=== PATIENT | female | born 1950 | race Caucasian/White ===

== ENCOUNTER 2025-02-03 06:54 | Day surgery (SDC) | payer SELFPAY, OTHER ==
--- NOTE | 2025-02-02 13:03 | PAT.ANE_ITS ---
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 When Was Last Pacemaker Check QUESTION #4 FULL TEXT: You/Your Family Experience fever (hyperthermia) with Anesthesia Last Oral Intake Last Oral intake: Last Oral Intake NPO since Meds taken in AM with sips of water? 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 Has anyone observed you stop No 01/30/25 15:24 breathing during sleep? STOP Results Negative 01/30/25 15:24 QUESTION #5 FULL TEXT : Do you snore loudly (louder than talking or can be heard through closed doors)? 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 Specify any problems Hx of Preganancy in last 3 No 01/30/25 15:24 Months Nurse Filling Out Transfusion VLEHMAN 01/30/25 15:24 & Questions: Date: 01/30/25 01/30/25 15:24 Time: 15:34 01/30/25 15:24 Patient unable to answer at this time (ie. 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Instructions ?Recorded ?Last Taken ?Type amlodipine 5 mg tablet 5 mg PO QDAY 01/23/25 Unknow n History aspirin 81 mg tablet 81 mg PO QDAY 01/23/2501/29 History atorvastatin 40 mg tablet 40 mg PO QDAY 01/23/25 Unkno wn History dapagliflozin propanediol 10 mg 10 mg PO QAM 01/23/25 01/30/25 History tablet (Farxiga) furosemide 20 mg tablet 20 mg PO QAM 01/23/25 Unknow n History gabapentin 400 mg capsule 400 mg PO 4X/DAY 01/23/25 Un known History glipizide 5 mg tablet, extended 5 mg PO QDAY 01/23/25 Unknown History release 24 hr hydralazine 25 mg tablet 25 mg PO TID 01/23/25 Unknow n History lisinopril 10 mg tablet 10 mg PO QAM 01/23/25 Unknow n History metformin 1,000 mg tablet 1,000 mg PO BID 01/23/25 Unk nown History oxybutynin chloride 10 mg 10 mg PO QDAY 01/23/25 Unkno wn History tablet,extended release 24 hr Allergy/AdvReac Type Severity Reaction Status Date / Time No Known Allergies Allergy Verified 01/30/25 15:18 Family History (Updated 01/23/25 @ 09:20 by Leslie Jackson) Mother Heart disease Father Heart disease Surgical History (Updated 01/30/25 @ 15:33 by Wilma Charles) History of cardiac catheterization S/P laparoscopic cholecystectomy History of Social History (Updated 01/23/25 @ 09:20 by Leslie Jackson) Smoking Status: Never smoker alcohol intake: never Audit: Pertinent Findings Pertinent Findings Stress test pertinent findings: Stress test performed 07/17/2023: Normal left ventricular size. The stress test was technically difficult. Septum appears dyskinetic. Calculated left ventricular ejection fraction 56% Recommendation Anesthesia Recommendation Anesthesia recommendation: OPTIMIZED for anesthesia
[2025-02-03] VITALS (10 sets, daily range): BP systolic 76–150; BP diastolic 22–70; PULSE 62–89; RESP 16–18; TEMP 36.1–36.6; O2SAT 10–100; BMI 22.1
--- OUTSIDE RECORDS SUMMARY | 2025-02-03 07:00 | XMS RPT_ITS | CCD ---
Author Organization [facility] Inform ion [facility] Care Team Providers Care Home Security Professional Name Role Phone Richard Luna Alpa Unavailable Ashu Castellanos Unavailable Unavailable Ashu Castellanos Unavailable Unavailable Klironomos, Dionysios Unavailable Unavailabl e Klironomos, Dionysios Unavailable Unavailabl e Klironomos, Dionysios Unavailable Unavailabl e Klironomos, Dionysios Unavailable Unavailabl e Klironomos, Dionysios Unavailable Unavailabl e Klironomos, Dionysios Unavailable Unavailabl e BABIUCH, LISETTE Unavailable Unavailable THELMA ETIENNE Unavailable Unavailable JODY, RICHARD B Attending Unavailable JODY, RICHARD B Primary Care Unavailable JODY, RICHARD B Admitting Unavailable JODY, RICHARD B Attending Unavailable JODY, RICHARD B Primary Care Unavailable JODY, RICHARD B Admitting Unavailable JODY, RICHARD B Attending Unavailable JODY, RICHARD B Primary Care Unavailable JODY, RICHARD B Admitting Unavailable JODY, RICHARD B Admitting Unavailable JODY, RICHARD B Attending Unavailable JODY, RICHARD B Primary Care Unavailable JODY, RICHARD B Attending Unavailable JODY, RICHARD B Primary Care Unavailable JODY, RICHARD B Attending Unavailable JODY, RICHARD B Primary Care Unavailable JODY, RICHARD B Attending Unavailable JODY, RICHARD B Primary Care Unavailable JODY, RICHARD B Admitting Unavailable JODY, RICHARD B Attending Unavailable JODY, RICHARD B Primary Care Unavailable Joshua JOYCE, Devan Bagley Primary Care Provid er DEVAN LEWIS Primary Care Unavaila ble DAY, MARLENJASVIR BAY Referring Unavailable DAY, MARLENJASVIR BAY Attending Unavailable DAY, MARLENJASVIR BAY Attending Unavailable DEVAN LEWIS Primary Care Unavaila ble DAY, MARLENJASVIR ABDULLAHIE Referring Unavailable JOSHUA DEVAN BAGLEY Primary Care Unavaila ble DAY, MARLENJASVIR BAY Attending Unavailable DAY, MARLENJASVIR ABDULLAHIE Referring Unavailable DEVAN LEWIS Primary Care Unavaila ble DAY, MARLENJSAVIR BAY Attending Unavailable DAY, MARLENJASVIR ABDULLAHIE Referring Unavailable LEWISDEVAN Primary Care Unavaila ble DAY, MARLEN BAY Attending Unavailable DAY, MARLENJASVIR BAY Referring Unavailable [facility] Consulting DIONE Riley Admitting Unavailable DEVAN MIJARES Referring Unavailable ARLENE ALFORD Attending Unavailable RICHARD LUNA Primary Care Unavaila ble Josef DONG, Dr. Tejada Attending Provider Mallory Bahena Attending Unavailable Devan Lewis Referring Unavailable Devan Lewis Primary Care Unavailable Mallory Bahena Attending Unavailable Medications Current Medications Medication Drug Class(es) Dates Sig (Normalized) Sig (Original) amLODIPine 5 mg oral tablet (2 sources) Dihydropyridine Calcium Channel Joseph Start: 01-23-2025 take 1 tablet by mouth once daily Amlodipine 5 mg tablet Active 5 mg PO daily January 23, 2025 12:00am take 1 tablet by mouth once mei y amLODIPine (NORVASC) 10 MG tablet Take 1 (one) tablet (10 mg total) by mouth daily . 0 Active aspirin 81 mg oral tablet (2 sources) Platelet Aggregation Inhibitor, Nonsteroidal Anti-inflammatory Drug Start: 01-23-2025 take 1 tablet by mouth once daily Aspirin 81 mg tablet Active 81 mg PO daily January 23, 2025 12:00am take 0.5 tablet by m outh once daily in the morning aspirin 325 MG tablet Take 0.5 (one-half ) tablet (162.5 mg total) by mouth every morning . 0 Active atorvastatin 40 mg oral tablet (2 sources) HMG-CoA Reductase Inhibitor Start: 01-23-2025 take 1 tablet by mouth once daily Atorvastatin 40 mg tablet Active 40 mg PO daily January 23, 2025 12:00am take 1 tablet by mouth once mei y atorvastatin (LIPITOR) 20 MG tablet Take 1 (one) tablet (20 mg total) by mouth nightly . 0 Active CHOLECALCIFEROL, VITAMIN D3, ORAL (1 source) take 1 tablet by mouth once daily at lunch CHOLECALCIFEROL, VITAMIN D3, ORAL Take 1 tablet by mouth daily with lunch . 0 Active dapagliflozin 10 mg oral tablet (1 source) Sodium-Glucose Cotransporter 2 Inhibitor Start: 025 take 1 tablet by mouth once daily in the morning Dapagliflozin Propanediol (Farxiga) 10 mg tablet Active 10 mg PO EVERY MORNING January 23, 2025 12:00am furosemide 20 mg oral tablet (2 sources) Loop Diuretic Start: 025 take 1 tablet by mouth once daily in the morning Furosemide 20 mg tablet Active 20 mg PO EVERY MORNING January 23, 2025 12:00am Start: 06-17-2023 End: 07-17-2023 take 2 tablets by mouth once daily in the morning furosemide (LASIX) 20 MG tablet Take 2 (two) tablets (40 mg total) by mouth every morning . 60 tablet 0 06/17/2023 07/17/2023 Active gabapentin 400 mg oral capsule (9 sources) Anti-epileptic Agent Start: 01-23-2025 take 1 capsule by mouth four times daily Gabapentin 400 mg capsule Active 400 mg PO 4 TIMES DAILY January 23, 2025 12:00am Start: 08-01-2017 take 1 capsule by mo uth four times daily gabapentin (NEURONTIN) 400 MG capsule Take 1 (one) capsule (400 mg total) by mouth 4 (four) times a day . 3 08/01/2017 Active glipiZIDE er 5 mg 24 hr extended release oral tablet (9 sources) Sulfonylurea Start: 01-23-2025 take 1 tablet by mouth once daily Glipizide 5 mg tablet extended release 24hr Active 5 mg PO daily January 23, 2025 12:00am Start: 05-31-2017 take 1 tablet by tunde th once daily in the morning glipiZIDE (GLUCOTROL XL) 5 MG 24 hr tablet Take 1 (one) tablet (5 mg total) by mouth every morning . 3 05/31/2017 Active Start: 05-31-2017 take 1 tablet by tunde th once daily glipiZIDE (GLUCOTROL) 5 MG tablet Take 5 mg by mouth daily. 3 05/31/2017 Active hydrALAZINE hydrochloride 25 mg oral tablet (1 source) Arteriolar Vasodilator Start: 01-23-2025 take 1 tablet by mouth three times daily Hydralazine 25 mg tablet Active 25 mg PO THREE TIMES A DAY January 23, 2025 12:00am lisinopril 10 mg oral tablet (2 sources) Angiotensin Converting Enzyme Inhibitor Start: 01-23-2025 take 1 tablet by mouth once daily in the morning Lisinopril 10 mg tablet Active 10 mg PO EVERY MORNING January 23, 2025 12:00am Start: 06-05-2023 take 1 tablet by tunde th once daily in the morning lisinopriL (PRINIVIL,ZESTRIL) 10 MG tablet Take 1 (one) tablet (10 mg total) by mouth every morning . 0 06/05/2023 Active metFORMIN hydrochloride 1000 mg oral tablet (9 sources) Biguanide Start: 01-23-2025 take 1 tablet by mouth twice daily Metformin 1,000 mg tablet Active 1000 mg PO TWICE A DAY January 23, 2025 12:00am Start: 05-31-2017 take 1 tablet by tunde th twice daily metFORMIN (GLUCOPHAGE) 1000 MG tablet Take 1 (one) tablet (1,000 mg total) by mouth 2 (two) times a day . 3 05/31/2017 Active omeprazole 40 mg delayed release oral capsule (1 source) Proton Pump Inhibitor Start: 01-23-2025 take 1 capsule by mouth once daily Omeprazole 40 mg capsule,delayed release(DR/EC) Active 40 mg PO daily 30 3 January 23, 2025 12:00am 24 hr oxybutynin chloride 10 mg extended release oral tablet (2 sources) Cholinergic Muscarinic Antagonist Start: 01-23-2025 take 1 tablet by mouth once daily Oxybutynin Chloride 10 mg tablet extended release 24hr Active 10 mg PO daily January 23, 2025 12:00am Start: 06-05-2023 take 1 tablet by tunde th once daily oxyBUTYnin (DITROPAN-XL) 10 MG 24 hr tablet Take 1 (one) tablet (10 mg total) by mouth nightly . 0 06/05/2023 Active levothyroxine sodium 0.05 mg oral tablet (6 sources) l-Thyroxine take 1 tablet by mouth once daily levothyroxine (SYNTHROID, LEVOTHROID) 50 MCG tablet Take 1 (one) tablet (50 mcg total) by mouth once daily . 0 Active traMADol hydrochloride 50 mg oral tablet (1 source) Opioid Agonist Start: 01-23-2025 take 1 tablet by mouth every six hours as needed Tramadol 50 mg tablet Active 50 mg PO EVERY 6 HOURS as needed January 23, 2025 12:00am Completed/Discontinued Medications Medication Drug Class(es) Dates Sig (Normalized) Sig (Original) Pantoprazole 20 mg tablet,delayed release (DR/EC) (1 source) Start: 01-23-2025 End: 01-23-2025 take 1 tablet by mouth once daily Pantoprazole 20 mg tablet,delayed release (DR/EC) Discontinued 20 mg PO daily January 23, 2025 12:00am January 23, 2025 9:56am simvastatin 10 mg oral tablet (5 sources) HMG-CoA Reductase Inhibitor Start: 09-12-2017 End: 07-09-2023 take 1 tablet by mouth once daily simvastatin (ZOCOR) 10 MG tablet Take 1 (one) tablet (10 mg total) by mouth nightly . 3 09/12/2017 07/09/2023 Discontinued (Alternate therapy) Problems Active Problems Problem Classification Problem Date Documented Da te Episodic/Chronic Abdominal pain (1 source) Abdominal pain; Translations: [Unspecified abdominal pain] 01-23-2025 Episodic Congestive heart failure; nonhypertensive (8 sources) Chronic heart failure co-occurrent with normal ejection fraction; Translations: [Chronic diastolic (congestive) heart failure] Onset: 06-14-2023 07-09-2023 Chronic Deficiency and other anemia (1 source) Anemia; Translations: [Anemia, unspecified] 01-23-2025 Episodic Diabetes mellitus without complication (1 source) Diabetes mellitus; Translations: [Type 2 diabetes mellitus without complications] 01-23-2025 Chronic Essential hypertension (1 source) Hypertensive disorder; Translations: [Essential (primary) hypertension] 01-23-2025 Chronic Gastrointestinal hemorrhage (1 source) Finding of appearance of stool; Translations: [Melena] 01-23-2025 Episodic Malaise and fatigue (1 source) Fatigue; Translations: [Other fatigue] 01-23-2025 Episodic Nausea and vomiting (1 source) Nausea; Translations: [Nausea] 01-23-2025 Episodic Nonspecific chest pain (5 sources) Chest pain; Translations: [Chest pain, unspecified] Onset: 07-09-2023 07-09-2023 Episodic Other gastrointestinal disorders (1 source) Dysphagia; Translations: [Dysphagia, unspecified] 01-23-2025 Episodic Other gastrointestinal disorders (1 source) Constipation; Translations: [Constipation, unspecified] 01-23-2025 Episodic Other lower respiratory disease (2 sources) Shortness of breath; Translations: [Shortness of breath] Onset: 06-14-2023 Episodic Other lower respiratory disease (1 source) Dyspnea; Translations: [Shortness of breath] 01-23-2025 Episodic Other nutritional; endocrine; and metabolic disorders (1 source) Weight decreased; Translations: [Abnormal weight loss] 01-23-2025 Episodic Other screening for suspected conditions (not mental disorders or infectious disease) (1 source) Patient encounter status; Translations: [Encounter for screening for lipoid disorders] 07-09-2023 Episodic Residual codes; unclassified (1 source) Sleep apnea; Translations: [Sleep apnea, unspecified] 01-23-2025 Chronic Past or Other Problems Problem Classification Problem Date Documented Da te Episodic/Chronic Other fractures (8 sources) Closed multiple fractures of thoracic spine; Translations: [Unspecified fracture of unspecified thoracic vertebra, initial encounter for closed fracture] Onset: 08-07-2017 08-07-2017 Episodic Unclassified (1 source) Closed compression fracture of thoracic vertebra with routine healing, subsequent encounter Results Test Name Value Interpretation Reference Range Facility MR/PATCharo 02-02-2025 MR[facility] Department [address] [place] [address] PAT - Anesthesia 02/02/25 1303 MR#: [id number] Acct: [id number] Name: MARVIN SIMONS Rep #: [id number] : 1950 74 From: Andrez Ngo MD PCP: Devan Lewis PA-C Status:PRE [facility] [place] Race: C Location: EN Pre-Assessment Diagnosis/Proposed Procedure Planned Operative Procedure(s): EGD, COLONOSCOPY Anesthesia History Anesthesia History - ios software engineer: Anesthesia History - ios software engineer Hx Hospitalization No 01/30/25 15:24 Any Problems With Anesthesia No 01/30/25 15:24 Cholinesterase deficiency No 01/30/25 15:24 You/Your Family Experience No 01/30/25 15:24 fever (hyperthermia) with Relationship Recent Exposure to Contagious Disease Does patient have nerve No 01/30/25 15:24 stimulator Patient instructed to have device shut off --Does patient have Pacemaker or ICD? When Was Last Pacemaker Check QUESTION #4 FULL TEXT: You/Your Family Experience fever (hyperthermia) with Anesthesia Last Oral Intake Last Oral intake: Last Oral Intake NPO since Meds taken in AM with sips of water? Meds patient instructed to take am of surgery PONV PONV - ios software engineer: PONV - ios software engineer Female Yes 01/30/25 15:24 HX of Motion Sickness No 01/30/25 15:24 HX of N/V After Surgery No 01/30/25 15:24 Non-Smoker Yes 01/30/25 15:24 Duration of Surgery greater No 01/30/25 15:24 than 60 minutes Number of Risk Factors 2 01/30/25 15:24 PONV Score Moderate Risk 01/30/25 15:24 Height Weight Height Weight: Anesthesia: Height Weight Height 5 ft 2 in 01/23/25 09:20 Respiratory Assessment Respiratory Assessment - ios software engineer: Respiratory Tract Infection Hx - ios software engineer Hx Respiratory Tract Infection No 01/30/25 15:24 STOP Sleep Apnea STOP Sleep Apnea - ios software engineer: STOP Sleep Apnea - ios software engineer Hx Hypertension Yes 01/30/25 15:24 Hx Sleep Apnea No 01/30/25 15:24 CPAP BIPAP Do you snore loudly (louder No 01/30/25 15:24 than talking or can be heard Do you often feel tired/ No 01/30/25 15:24 fatigued/ sleepy during daytime? Has anyone observed you stop No 01/30/25 15:24 breathing during sleep? STOP Results Negative 01/30/25 15:24 QUESTION #5 FULL TEXT : Do you snore loudly (louder than talking or can be heard through closed doors)? 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 Specify any problems Hx of Preganancy in last 3 No 01/30/25 15:24 Months Nurse Filling Out Transfusion [facility] 01/30/25 15:24 Questions: Date: 01/30/25 01/30/25 15:24 Time: 15:34 01/30/25 15:24 Patient unable to answer at this time (ie. confused, unrespo /Reproduction History /Reproductive History - ios software engineer: /Reproductive Hx- ios software engineer Hx Now No 01/30/25 15:24 Gestational Age (in weeks): EDC: Hx Hx Para Hx Section SAB No 01/30/25 15:24 [facility] Medical History (Updated 01/30/25 @ 15:33 by Wilma Charles) Wears dentures Wears glasses Walker as ambulation aid Uses wheelchair Bladder disease High cholesterol Non-smoker Shortness of breath on exertion Leg cramps History of stress test Anemia Black tarry stools Constipation Nausea Abdominal pain Sleep apnea SOB (shortness of breath) HTN (hypertension) Diabetes Weight loss Fatigue Difficulty swallowing Home Medications ???Medication ???Instructions ???Recorded ???Last Taken ???Type amlodipine 5 mg tablet 5 mg PO QDAY 01/23/25 Unknown Hist ory aspirin 81 mg tablet 81 mg PO QDAY 01/23/25 01/29/25 Hi story atorvastatin 40 mg tablet 40 mg PO QDAY 01/23/25 Unknown His tory dapagliflozin propanediol 10 mg 10 mg PO QAM 01/23/25 01/30/25 His tory tablet (Farxiga) furosemide 20 mg tablet 20 mg PO QAM 01/23/25 Unknown Hist ory gabapentin 400 mg capsule 400 mg PO 4X/DAY 01/23/25 Unknown History glipizide 5 mg tablet, extended 5 mg (more content not included)... Normal [facility] Surgery Visit Reporton 01-23 Surgery Visit Report [facility] [address] [place] [address] OFFICE VISIT Date of Service: 01/23/25 MR#: [id number] Acct: [id number] Name: MARVIN SIMONS Rep #: [id number] : 1950 Provider: Dr. Mallory paredes MD Age/Sex: 74/F Location: [facility] Status: Signed Intake Vital Signs 01/23/25 09:20 Height 5 ft 2 in Weight: 124 lb BMI 22.6 BP 134/66 H Blood Pressure Location Rt brachial Position Sitting Respiration 16 Intake Visit Reasons: WEIGHT LOSS/BLOATING Chief Complaint: wt loss, abd pain, bloating, constipation [employer] Social [employer] Teacher Required: No Is patient in pain?: Yes (mid abdomen) Allergies No Known Allergies Allergy (Unverified 01/23/25 09:21) Medications ???Medication ???Instructions ???Recorded ???Confirmed ???Type amlodipine 5 mg tablet 5 mg PO QDAY 01/23/25 01/23/25 His tory aspirin 81 mg tablet 81 mg PO QDAY 01/23/25 01/23/25 Hi story atorvastatin 40 mg tablet 40 mg PO QDAY 01/23/25 01/23/25 Hi story dapagliflozin propanediol 10 mg 10 mg PO QAM 01/23/25 01/23/25 His tory tablet (Farxiga) furosemide 20 mg tablet 20 mg PO QAM 01/23/25 01/23/25 His tory gabapentin 400 mg capsule 400 mg PO 4X/DAY 01/23/25 01/23/25 History glipizide 5 mg tablet, extended 5 mg PO QDAY 01/23/25 01/23/25 His tory release 24 hr hydralazine 25 mg tablet 25 mg PO TID 01/23/25 01/23/25 His tory lisinopril 10 mg tablet 10 mg PO QAM 01/23/25 01/23/25 His tory metformin 1,000 mg tablet 1,000 mg PO BID 01/23/25 01/23/25 History omeprazole 40 mg capsule,delayed 40 mg PO QDAY #30 caps 01/23/25 Rx release oxybutynin chloride 10 mg 10 mg PO QDAY 01/23/25 01/23/25 Hi story tablet,extended release 24 hr tramadol 50 mg tablet 50 mg PO Q6 PRN 01/23/25 01/23/25 History Have you fallen in the past year?: Yes PFSH Medical History (Updated 01/26/25 @ 12:[address] Mallory Bahena MD) Anemia Black tarry stools Constipation Nausea Abdominal pain Sleep apnea SOB (shortness of breath) HTN (hypertension) Diabetes Weight loss Fatigue Difficulty swallowing Surgical History (Updated 01/23/25 @ 09:20 by Leslie Jackson) S/P laparoscopic cholecystectomy History of Family History (Updated 01/23/25 @ 09:20 by Leslie Jackson) Mother Heart disease Father Heart disease Social History (Updated 01/23/25 @ 09:20 by Leslie Jackson) Smoking Status: Never smoker alcohol intake: never HPI HPI HPI: 74-year-old female presents due to bloating and weight loss. Patient states she lost about 2025 pounds unintentionally in the last 4 months. Patient states she has felt bloated for several months. Patient has been occasionally taking MiraLAX usually has bowel moods but every 2 to 3 days. Patient denies any vomiting but has had nausea daily. Patient currently denies any abdominal pain. Patient is on 81 mg aspirin preventative. ROS General General: Yes weight change and fatigue; No appetite, colon cancer or breast cancer HEENT HEENT: Yes difficulty swallowing, eye injury and eye surgery; No swollen glands or hoarseness Endo Endocrine: Yes diabetes mellitus; No thyroid disease, thyroid cancer, Hair loss, heat intolerance or cold intolerance Skin Skin: No rash or changing moles Musc Musculoskeletal: Yes back problems; No arthritis, rheumatoid arthritis, gout or joint pain Cardio Cardiovascular: Yes high blood pressure; No murmur, pacemaker, heart disease, atrial fibrillation, heart attack, heart stent, palpitations, shortness of breath with exertion or chest pain Psych Psychiatric: No depression, anxiety or hearing voices Resp Respiratory: Yes shortness of breath, Yes sleep apnea, No cough, No COPD, No asthma, No emphysema and No wheezing Gastro Gastrointestinal: Yes abdominal pain, Yes nausea or vomiting, No diarrhea, Yes constipation, No blood in stool, No acid reflux, No hemorrhoids, No ulcers, No gallbladder problem and Yes black,tarry stools Joseph Hematologic: No blood thinners, No blood disorders, No bleeding, Yes anemia and No blood clots Neuro Neurologic: Yes numbness and Yes tingling Exam Const General: cooperative, comfortable and no acute distress HENMT Head: normocephalic and atraumatic Neck Neck: supple Resp Effort Inspection: normal respiratory effort Cardio Rate: regular rate GI Inspection: non-distended Palpation: soft and nontender Skin General: no rashes or lesions noted Neuro General: CN's II-XI intact bilaterally Extrem General: normal to inspection Psych Mental Status: mental status grossly normal Attitude: cooperative Assessment and Plan Assessment and Plan (1) Nausea: Status: Acute (2) Weight loss: Status: Acute (3) Bloating: Status: Acute Medi (more content not included)... 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 Normal pharmacologic stress SPECT myocardial perfusion imaging study. 2. No inducible ischemia identified. 3. No diagnostic ischemic ST segment changes with regadenoson stress. Borderline ST depression inferior lateral leads with hypertension in recovery. 4. IV caffeine administered due to elevated blood pressure in recovery, maximal blood pressure of (264/38). 5. Normal left ventricular size. The stress/rest left ventricular cavity ratio (Transient Ischemic Dilatation ratio) = 1.13 . SPECT images demonstrate homogeneous tracer distribution throughout the myocardium. 6. Technically difficult gating with post stress imaging. Septum appears dyskinetic. Calculated LVEF 56%. 7. Overall intermediate-risk study based on SCAI criteria (1-3% predicted annual cardiac mortality). History/Risk Factors Hypertension: Yes Dyslipidemia: Yes Coronary Artery Disease (CAD) No Congestive Heart Failure (CHF): Hx CHF Diabetes Mellitus: Type II COPD: No Tobacco Use: Never Family History: Coronary Artery Disease History/Risk Factors Patient off home medications prior to study. Asthma: NO Caffeine in Last 24 Hours: No Seizure Disorder: No Radiopharmaceutical: Tc-99m Tetrofosmin Administration Site: IV - right antecubital Administered By: Frankie Guzman RT(N), NCT Camera Used: Taodynei Radiopharmaceutical: Tc-99m Tetrofosmin Administration Site: IV - right antecubital Administered By: Frankie Guzman RT(N), NCT Camera Used: Taodynei Image Protocol Protocol: Stress/Rest 1 Day Rest Radiopharmaceutical Dose: 18.1 mCi Imaging Date AND Time: 07/17/2023 11:57 AM Patient Position: supine Stress Radiopharmaceutical Dose: 6.4 mCi Imaging Date AND Time: 07/17/2023 10:28 AM Patient Position: supine Injection to Imaging Time: 57 min Injection to Imaging Time: 79 min Total Radiation Dose: 5.5 mSv Injection Date AND Time: 07/17/2023 11:00 AM Injection Date AND Time: 07/17/2023 9:10 AM Procedure(s): Gated SPECT images acquired supine post Tetrofosmin injection at peak stress. SPECT images acquired supine post Tetrofosmin injection at rest. [facility] [employer] application was utilized for processing and interpretation. SPECT Results Perfusion Findings Normal left ventricular size. The stress/rest left ventricular cavity ratio (Transient Ischemic Dilatation ratio) = 1.13 . SPECT images demonstrate homogeneous tracer distribution throughout the myocardium. Summed Difference Score: 0 Summed Stress Score: 0 Summed Rest Score: 0 Functional Results -------- Name Value Normal -------- Stress -------- Stress LV Ejection Fraction 56 % 55-70 Stress LV End Systolic Volume 32.00 ml Nuclear Stress Cardiac Output 3.10 l/min Stress LV End Diastolic Volume 73.00 ml Transient Ischemic Dilatation 1.13 Nuclear Stress Myocardial Mass 95.00 g Functional Findings Technically difficult gating with post stress imaging. Septum appears dyskinetic. Calculated LVEF 56%. Report Signatures MPI SPECT Finalized by Keren Moura MD on 07/17/2023 01:36 PM Stress Finalized by Keren Moura MD on 07/17/2023 01:36 PM Stress ECG Details Protocol: LEXISCAN Rest HR: 85 bpm Peak HR: 94 bpm Rest Sys BP: 119 mmHg Peak Sys BP: 264 mmHg Max Pred HR: 150 bpm % Max Pred HR: 63 % Target HR: 128 bpm Max RPP: 24,816 bpm*mmHg Termination Reason: PER PROTOCOL Cardiac Symptoms: None Total Time: 5 min : 0 sec Rest Linton BP: 44 mmHg Peak [place] BP: 38 mmHg Total Dose: 0.4 mg Resting ECG Normal sinus rhythm - normal ECG. Stress ECG No diagnostic ischemic ST segment changes with regadenoson stress. Borderline ST depression inferior lateral leads with hypertension in recovery. Arrhythmias RARE PAC. Stress Summary IV caffeine administered due to elevated blood pressure in recovery, maximal blood pressure of (264/38). Normal stress electrocardiogram. Dictated by: KEREN MOURA on SunJul 17, 2023 3:33:54 PM EST Transcribed by: KEREN MOURA on SunJul 17, 2023 3:33:54 PM EST Finalized (more content not included)... Normal [facility] Comment on above: Order Comment: Injur y/Trauma or Illness?:Illness/Other How long have you had these symptoms (acute/chronic)?:Unknown Reason for exam?:CP, CHF Type of Exam?:Unknown Additional signs and symptoms?:CP, CHF ECHOCARDIOGRAM COMPLETEon ECHOCARDIOGRAM COMPLETE Patient Info Name: MARVIN SIMONS Age: 72 years : 1950 Gender: Female Ht: 155 cm Wt: 74 kg BSA: 1.82 m2 HR: 70 bpm BP: 131 / 76 mmHg Heart Rhythm: Sinus Rhythm Technical Quality: Good Exam Date: 06/15/2023 2:30 PM Patient Status: Inpatient Boxcar Weigher: Ag Madden RCDS Exam Type: ECHOCARDIOGRAM COMPLETE Study Info Indications - Dyspnea R06.00 - Dyspnea, unspecified Referring Physician: DEVAN MIJARES ; [id number] BMI: 30.99 kg/m2 Summary 1. Normal LV chamber size. There is mild concentric left ventricular hypertrophy. Systolic function is normal with no regional wall motion abnormalities. Estimated ejection fraction of 60 to 65%. 2. The left ventricular diastolic function is grade II diastolic dysfunction, consistent with elevated left atrial pressure. 3. Right ventricular chamber dimension is normal. Right ventricular systolic function is normal. 4. No hemodynamically significant valvular disease. 5. RV systolic pressure could not be accurately estimated. History/Risk Factors Congestive Heart Failure (CHF): Hx CHF Diabetes Mellitus: Type II Tobacco Use: Never Left Ventricle Normal LV chamber size. There is mild concentric left ventricular hypertrophy. Systolic function is normal with no regional wall motion abnormalities. Estimated ejection fraction of 60 to 65%. The left ventricular diastolic function is grade II diastolic dysfunction, consistent with elevated left atrial pressure. Right Ventricle Right ventricular chamber dimension is normal. Right ventricular systolic function is normal. Left Atria Left atrial chamber is normal with a left atrial volume index of 33 ml/m2 by BP MOD. Right Atria Right atrial chamber dimension is normal. Pericardium/Pleural There is no pericardial effusion. Inferior Vena Cava Normal inferior vena cava with <50% collapse upon inspiration consistent with elevated right atrial pressure. Aorta The aortic measurements are indexed to age and body surface area. The aortic root is dilated measuring 3.3 cm with an index of 1.8 cm/m2. Left Ventricular Outflow Tract -------- Name Value Normal -------- LVOT 2D -------- LVOT Diameter 2.1 cm LVOT Doppler -------- LVOT Peak Velocity 1.0 m/s LVOT Peak Gradient 4 mmHg LVOT Mean Gradient 2 mmHg LVOT VTI 23 cm LVOT VTI/AV VTI Ratio 0.7 LVOT Stroke Volume 80 ml LVOT Stroke Index 44.19 ml/m2 Pulmonic Valve -------- Name Value Normal -------- RVOT Doppler -------- RVOT Peak Velocity 88 cm/s RVOT Peak Gradient 2 mmHg RVOT Mean Gradient 1 mmHg RVOT VTI 18 cm Mitral Valve -------- Name Value Normal -------- MV Doppler -------- MV Peak Velocity 1.38 m/s MV Peak Gradient 7 mmHg MV Mean Gradient 3 mmHg MV VTI 48 cm MV Decel [place] 424 cm/s2 MV PHT 93 ms MV Area (PHT) 2.4 cm2 4.0-5.0 MV Area (Cont Eq VTI) 1.7 cm2 MV Area Index (Cont Eq VTI) 0.92 cm2/m2 MV DVI 2.10 MV Diastolic Function -------- MV E Peak Velocity 1.37 m/s MV A Peak Velocity 1.33 m/s MV E/A 1.0 MV Decel Time 322 ms MV Annular TDI -------- MV Septal e' Velocity 5.1 cm/s >=8.0 MV E/e' (Septal) 26.9 <=8.0 MV Lateral e' Velocity 2.6 cm/s >=10.0 MV E/e' (Lateral) 53.4 <=8.0 MV e' Average 3.82 cm/s MV E/e' (Average) 40.2 Tricuspid Valve -------- Name Value Normal -------- TV Annular TDI -------- RV s' Velocity 0.1 m/s 0.1-0.2 Aorta -------- Name Value Normal -------- Ascending Aorta -------- Ao Root Diameter (2D) 3.3 cm 2.7-3.3 Ao Root Diam Index (2D) 1.8 cm/m2 1.6-2.0 Aortic Valve -------- Name Value Normal -------- AV Doppler (more content not included)... Normal [facility] COVID-19/INFLUENZA A,B MOLEC [place] 06-14-2023 SARS-CoV-2 (COVID-19) Ab IA Ql SARS-COV-2 (VILMA): Not Detected INFLUENZA A (VILMA): Not Detected INFLUENZA B (VILMA): Not Detected Normal Not Detected [facility] Comment on above: Order Comment: This test was performed under the FDA's Emergency Use Authorization (EUA). Testing was performed using the Clari Katie SARS-CoV-2 RT-PCR AND Influenza A/B Nucleic Acid Test on the Katie Vilma System. This test has not been approved for use in asymptomatic patients and its performance in this patient population has not been evaluated. Negative results do not rule out the presence of SARS-CoV-2, influenza A, and/or influenza B. Fact sheets for the EUA can be found at the following links: For Healthcare Providers: https://www.fda.gov/media/601302/download For Patients: https://www.fda.gov/media/655019/download Performed By: #### L [id number] #### [facility] [place] [id number] Thang Comer M.D. [id number] XR CHEST PA/APon 06-14-2023 XR CHEST PA/AP EXAMINATION: XR CHEST PA/AP 06/14/2023 5:18 pm HISTORY: ORDERING SYSTEM PROVIDED HISTORY: cp, TECHNOLOGIST PROVIDED HISTORY: Illness/Other Reason for exam: chest pain Cancer History: . Surgery, RadiationHistory: . Encounter Type: Initial Additional signs and symptoms: . ORDERING SYSTEM PROVIDED DIAGNOSIS CODES: COMPARISON: Portable chest from 07/25/2017. FINDINGS: Trachea, mediastinum, diaphragm and bony elements are intact. Mild osteopenic changes are noted. Heart size is mildly prominent. There is moderate calcified plaquing of the aortic arch. The lungs are clear and well aerated. No infiltrate or nodule or effusion or pneumothorax is noted. IMPRESSION: 1. Mild cardiomegaly. 2. The lungs are clear and well aerated. Workstation ID: [id number] Dictated by: CEE GREY on SunJun 14, 2023 5:35:42 PM EST Transcribed by: CEE GREY on SunJun 14, 2023 5:35:42 PM EST Finalized by: CEE GREY on Kristi Jun 14, 2023 5:35:42 PM EST Normal [facility] Comment on above: Order Comment: Injur y/Trauma or Illness?:Illness/Other How long have you had these symptoms (acute/chronic)?:Acute Reason for exam?:chest pain History of cancer?:. Surgeries, chemotherapy, or radiation?:. Type of Exam?:Initial Additional signs and symptoms?:. CT Chest w/o Contraston 01-10 CT Chest w/o Contrast CLINICAL HISTORY: Intermittent chest pains for years. Increasing pain with intensity and frequency. COMPARISON: None available. TECHNIQUE: Multiple contiguous axial images of the chest were obtained without enhancement. Multiplanar reformatted images were acquired at the CT console. All CT scans at this facility use dose modulation, iterative reconstruction, and/or weight based dosing when appropriate to reduce radiation dose to as low as reasonably achievable. FINDINGS: No evidence of aortic aneurysm. Atherosclerotic calcifications in the aorta and coronary arteries and origin of great vessels. There is no mediastinal or hilar lymphadenopathy. No pericardial or pleural effusions. The heart is mildly enlarged. There is discoid atelectasis in the lingula. There are minimal ground glass infiltrates/atelectasis posteriorly in the base of the left lower lobe. There is minimal atelectasis superior segment right lower lobe. Atelectasis posterior base right lower lobe. Tracheobronchial tree appears patent. There is a 2???3 mm nodule posteriorly within the superior segment left lower lobe, axial image 33. There is a 3 mm calcified granuloma superior segment right lower lobe, axial image 31. The visualized portions of the upper abdomen are unremarkable. The esophagus is unremarkable. Bones are demineralized. Severe volume loss within the T4 vertebra. Moderate volume loss in the T3 vertebra. Mild depression superior endplate of T7. Dorsal kyphosis. IMPRESSION: PATCHY INFILTRATE/ATELECTASIS IN THE POSTERIOR BASE LEFT LOWER LOBE. ATELECTASIS IN THE LINGULA. EXTENSIVE ATHEROSCLEROTIC CALCIFICATIONS IN THE AORTA AND CORONARY ARTERIES AND AT THE ORIGINS OF THE GREAT VESSELS. MILD CARDIAC ENLARGEMENT. NO ADENOPATHY OR PLEURAL EFFUSION. VOLUME LOSS WITHIN SEVERAL OF THE UPPER THORACIC VERTEBRAE. Report reported and signed by Geovanna Simons on 02/06/2022 1014 Normal [facility] VASC LAB Carotid Artery Dupl ex Ultrasounon 07-17-2019 VAS [place] [address] [phone], Vascular Lab Report Carotid Artery Duplex Ultrasound Patient Name: MARVIN SIMONS Reading Physician: [id number] Chevy Vargas MD Study Date: 07/17/2019 Referring Physician: Devan Lewis MRN/PID: [id number] PCP: Accession/Order#: [id number] CC Report to: Date of : 1950 Technologist: Shyanne Mace RVT Gender: F Technologist 2: Admission Status: Outpatient Location Performed: [facility] Diagnosis/ICD: I65.23-Occlusion and stenosis of bilateral carotid arteries Procedure/CPT: 83858 Cerebrovacular Carotid Duplex scan complete-[id number] CONCLUSIONS: Right Carotid: Findings are consistent with less than 50% stenosis of the right proximal ICA. Laminar flow seen by color Doppler. Right external carotid artery appears patent with no evidence of stenosis. The right vertebral artery is patent with antegrade flow. No evidence of hemodynamically significant stenosis in the right subclavian. Left Carotid: Findings are consistent with less than 50% stenosis of the left proximal ICA. Laminar flow seen by color Doppler. Left external carotid artery appears patent with no evidence of stenosis. The left vertebral artery is patent with antegrade flow. No evidence of hemodynamically significant stenosis in the left subclavian. Imaging & Doppler Findings: Right Plaque Morph: The proximal right internal carotid artery demonstrates heterogenous plaque. The proximal right external carotid artery demonstrates calcified plaque. The proximal right common carotid artery demonstrates calcified plaque. The mid right common carotid artery demonstrates heterogenous plaque. The right carotid bulb demonstrates calcified and heterogenous plaque. Left Plaque Morph: The proximal left internal carotid artery demonstrates heterogenous plaque. The proximal left external carotid artery demonstrates heterogenous plaque. The proximal left common carotid artery demonstrates heterogenous plaque. The mid left common carotid artery demonstrates heterogenous plaque. The distal left common carotid artery demonstrates heterogenous plaque. The left carotid bulb demonstrates heterogenous plaque. Right Left PSV EDV Waveform PSV EDV Waveform 95 cm/s 20 cm/s CCA P 87 cm/s 19 cm/s 83 cm/s 22 cm/s CCA D 127 cm/s 27 cm/s 82 cm/s 26 cm/s ICA P 104 cm/s 26 cm/s 111 cm/s 27 cm/s ICA D 100 cm/s 32 cm/s 155 cm/s ECA 100 cm/s 76 cm/s 22 cm/s Vertebral 60 cm/s 21 cm/s 129 cm/s Triphasic Subclavian Proximal 171 cm/s Triphasic Right Left ICA/CCA Ratio 1.0 0.8 [id number] Chevy Vargas MD Final Normal [facility] Lipid Profileon 04-02-2018 Cholesterol in HDL mass conc 41 mg/dL Normal [facility] Comment on above: Performed By: #### 3 [id number] #### [employer] [address] [place] [address] Cholesterol in LDL mass conc 95 mg/dL Normal 0-130 [facility] Comment on above: Result Comment: <100 OPTIMAL 100-129 NEAR / ABOVE OPTIMAL 130-159 BORDERLINE HIGH 160-189 HIGH >190 VERY HIGH CALC LDL NOT VALID WHEN TRIGLYCERIDE IS >400 MG/DL Performed By: #### 3 [id number] #### [employer] [address] [place], [place] [id number] Cholesterol in VLDL mass conc 17 mg/dL Normal [facility] Comment on above: Performed By: #### 3 [id number] #### [employer] [facility] [place] [id number] Cholesterol mass conc 153 mg/dL Normal 120-200 [facility] Comment on above: Result Comment: TOTA L CHOLEESTEROL: <200 NORMAL 200 - 239 BORDERLINE HIGH >240 HIGH Performed By: #### 3 [id number] #### [employer] [address] [place] [address] Triglyceride mass conc 83 mg/dL Normal 0-150 [facility] Comment on above: Result Comment: <150 NORMAL 150-199 BORDERLINE HIGH 200-499 HIGH >500 VERY HIGH Performed By: #### 3 [id number] #### [employer] [address] [place] [address] [place] 04-02-2018 Anion gap molar conc 12 mmol/L Normal 10-20 [facility] Comment on above: Performed By: #### 2 [id number] #### [employer] [address] [place] [address] Chloride molar conc 108 mmol/L High 98-107 [facility] Comment on above: Performed By: #### 2 [id number] #### [employer] [address] [place], [place] [id number] CO2 molar conc 26.0 mmol/L Normal 21.0-32.0 [facility] Comment on above: Performed By: #### 2 [id number] #### [employer] [address] [place] [address] Potassium molar conc 5.0 mmol/L Normal 3.5-5.3 [facility] Comment on above: Performed By: #### 2 [id number] #### [employer] [address] [place], [place] [id number] Sodium molar conc 141 mmol/L Normal 136-145 [facility] Comment on above: Performed By: #### 2 [id number] #### [employer] [address] [place], [place] [id number] CT SPINE THORACIC W/O CONTRA Trip 10-30-2017 CT SPINE THORACIC W/O CONTRAST Final ReportAccession No: [id number] Performed: Oct 30 2017 8:50AMExamination: CT SPINE THORACIC W/O CONTRASTEXAM: CT SPINE THORACIC W/O CONTRASTCLINICAL STATEMENT: Thoracic spine compression fractures. The patientfell 3months ago. Follow up.COMPARISON: CT thoracic spine, 10/02/2017.TECHNIQUE: Noncontrast axial CT images were obtained through the thoracicspine. Reconstructed images were obtained in the sagittal and coronalplanes.Dose reduction techniques were achieved by using automated exposurecontroland/or adjustment of mA and/or kV according to patient size and/or use ofiterative reconstruction technique.FINDINGS: Multiple compression fractures in the upper thoracic spine.There narinder healing subacute compression fracture at T2 with approximately 30% lossofvertebral body height that is stable. There is a healing subacutecompressionfracture at T3 with 40% loss of vertebral body height. Mild superiorendplatecompression fracture at T4 with 10% loss of vertebral body height isstable.Mild concave superior endplate compression deformities at T5 and T6 withapproximately 10% loss of vertebral body height are stable. There isretropulsion of the posterior aspect of T3 into the spinal canal by 3 mmresulting in mild spinal canal stenosis. This is stable from the prior.Thereare mildly displaced fractures of the spinous processes of T1, T2, and L5rwqvptdd stable. Compression fractures in the upper thoracic spine result in aprominent thoracic spine kyphosis which is stable. No new thoracic spinefractures.There are healing nondisplaced fractures involving the first ribs whicharestable. No new thoracic spine fractures.IMPRESSION:1. Stable CT of the thoracic spine.2. There are multiple subacute to chronic compression fractures in theupperthoracic spine most severe at T2 and T3. There is retropulsion of theposterioraspect of T3 into the spinal canal resulting in mild spinal canalstenosis.This is unchanged.3. Subacute fractures of the spinous processes of T1, T2, and T3 arestable.4. No new fractures. Alignment is unchanged.Interpreting Physician: SAM IZAGUIRRE M.D.Trans: dcarr : cc: Normal [facility] CT SPINE THORACIC W/O CONTRA Trip 10-02-2017 CT SPINE THORACIC W/O CONTRAST Final ReportAccession No: [id number] Performed: Oct 02 2017 8:52AMExamination: CT SPINE THORACIC W/O CONTRASTEXAM: CT SPINE THORACIC W/O CONTRASTCLINICAL STATEMENT: Follow-up for thoracic fracture. No new complaints.COMPARISON: 08/21/2017.TECHNIQUE: CT examination of the thoracic spine without IV contrast.Coronaland sagittal reformations were performed.Dose reduction techniques were achieved by using automated exposurecontroland/or adjustment of mA and/or kV according to patient size and/or use ofiterative reconstruction technique.FINDINGS: Compression fractures involving the vertebral body of T2 and V1mcebbbby seen and are similar. The degree of loss of axial height is stable.Thereare no new vertebral body compression fractures seen. Fractures involvingthebase of the spinous processes of T1, T2, and T3 are also again visualizedandshow stable alignment.Mild irregularity to the superior endplates of T4, T5, and T6 are againsuggested. These are stable. There are also noted to be stable appearingfractures involving the first rib on the right, right T2 transverseprocess,transverse processes bilaterally at T3 and T4, as well as on the left atT5. Nonew posterior element fracturing is identified.The visualized lung [place] are clear. There is no evidence of pleuraleffusion.There are coronary artery calcifications as well as aortic calcificationseen.IMPRESSION:St able appearance is noted to the multiple fractures involving the upperdorsalspine as described. There are no new injuries confirmed.Interpreting Physician: SHERMAN HERNANDEZ D.O.Trans: mmyers : cc: Normal [facility] Discharge Summaryon 08-30-19 Discharge Summary [facility] [place], [place] [address]PIBJMARVIN [facility] [id number] 3ADMIT 07/25/2017DISCH 07/31/2017DISCHARGE SUMMARYADMISSION DIAGNOSES1. Acute cervical strain.2. Acute thoracolumbar strain.3. Chest wall contusion.4. Status post fall.DISCHARGE DIAGNOSES1. T1 through T3 transverse process fracture.2. Acute nondisplaced fracture of the right posterior rib.3. Constipation.4. Hypertension.5. Diabetes.6. Status post fall.CONSULTATIONSPatient was seen by Dr. Salcedo with Neurosurgery regarding her thoracicspine fractures. The patient was also seen by Dr. Mendoza with inpatientrehab.[facility] OSVALENTINA Simons is a 66-year-old female patient, who came to the hospital afterfalling down about 12 steps at her home. The patient came in with complaintsof some cervical strain, thoracolumbar pain, chest wall contusion, and a fall.On further evaluation, the patient was found to have T1 through T3 thoracicspine fractures. She was also found to have a right first rib fracture. Thepatient's hospital course was pretty uncomplicated. She did see Neurosurgerywho further evaluated her thoracic fractures, which were nonoperativelymanaged. We did do aggressive pulmonary toileting, pain control, for her ribfracture. Her diabetes and hypertension were both managed per homemedications. The patient was seen and evaluated by inpatient rehab, , who recommended home with family support. By 07/31/2017, the patientwas feeling well enough to be discharged to home to follow up with her doctoras an outpatient.DISCHARGE INSTRUCTIONSPatient was discharged to home to follow up with the Trauma Clinic in 1-2weeks. Follow up with Dr. Salcedo as scheduled and her PCP in 1-2 weeks.The patient was instructed no heavy lifting or strenuous activity untilcleared by Neurosurgery. Okay to shower. Diet as tolerated.DISPOSITIONHome with family.CONDITIONStable.VITAL SIGNSAt discharge, temperature 97.8, heart rate 60, respirations 16, 128/72 forblood pressure.DISCHARGE MEDICATIONSNeurontin every day, fish oil every day, cyclobenzaprine every day, Tylenol asneeded for pain, glipizide every day, levothyroxine every day, metformin everyday.NORBERT BERNAL 08/29/2017 15:18 [id number] 08/29/2017 15:42 JLM/MODLElectronically Signed By Rachell Madrid Cnp on 29 Aug 2017 20:35:30 GMT Normal [facility] CT SPINE THORACIC W/O CONTRA Trip 08-21-2017 CT SPINE THORACIC W/O CONTRAST Final ReportAccession No: [id number] Performed: Aug 21 2017 3:27PMExamination: CT SPINE THORACIC W/O CONTRASTEXAM: CT SPINE THORACIC W/O CONTRAST 08/21/2017.CLINICAL STATEMENT: The patient suffered a burst fracture of the Y4egyiugjbznxdi and compression fractures of the upper thoracic spine in the middleofFebruary 2017. Followup for fracture healing.COMPARISON: CT scan thoracic spine 07/25/2017 and MRI thoracic spine07/26/2017.TECHNIQUE: CT examination of the thoracic spine without IV contrast.Coronaland sagittal reformations were performed. ?Dose reduction techniques were achieved by using automated exposurecontroland/or adjustment of mA and/or kV according to patient size and/or use ofiterative reconstruction technique.FINDINGS: There is a nondisplaced fracture of the right T2 transverseprocess.There is a nondisplaced fracture involving the posteromedial aspect of theright first rib which appears mildly comminuted. There appears to be someosseous bridging surrounding this fracture. There are nondisplacedfracturesinvolving the T3 and T4 transverse processes. There is also a nondisplacedfracture of the lateral aspect of the left T5 transverse process.There is redemonstration of a fracture of the base of the T1 spinousprocess.This fracture again appears to have distraction of approximately 2 mm asseenon the prior CT scan. There is no significant callus formation or osseousfusion seen to involve this fracture. There is also a similar appearanceof afracture of the base of the T2 spinous process which is distractedapproximately 2 mm and no evidence of healing of this fracture is seen. Anondisplaced fracture of the base of the T3 spinous process extendinginto thelamina bilaterally is again seen.There is a similar appearance of mild compression fractures of the S9eiihzyehzpahv and the superior endplates of T4, T5, and T6.There is also a similar appearance of a moderate burst fracture of the K8sevdkjtbn body with loss of 50% of vertebral body height. Retropulsion ofT3 of5 mm is again seen and again appears to cause mild-moderate spinal canalstenosis. The margins of the fracture of T3 appear ill-defined.No new compression fracture or subluxation of the thoracic spine is seen.Thereis a similar appearance of focal increased kyphosis of the thoracic spinecentered at the T3 level measuring approximately 47 degrees as measuredfromthe superior endplate of T1 to the inferior endplate of T6.IMPRESSION:1. There is a stable appearance of a moderate burst fracture of the X5vejxhqprx body with loss of 50% of vertebral body height when compared totheprior CT scan of 07/25/2017. There is also a stable appearance of anondisplaced fracture of the base of the T3 spinous process which extendsthrough the lamina bilaterally. No convincing evidence of significanthealingof these fractures is seen at this time. Mild retropulsion of T3 againappearsto cause mild-moderate spinal canal stenosis.2. Stable appearance of a mild compression fracture of the T2 vertebralbodyand mild superior endplate compression fractures of T4, T5, and T6.3. Stable appearance of mildly distracted fractures involving the basesof theT1 and T2 spinous processes.4. Stable appearance of nondisplaced fractures involving the right T0nfgzbwnwnn process, the T3 and T4 transverse processes bilaterally, theleft C8nghhxikywc process, and the right first rib.Interpreting Physician: ARDEN BHARDWAJ M.D.Trans: pita : cc: Normal [facility] Glucose, POCon 07-31-2017 Glucose mass conc 166 mg/dL High 80-115 [facility] Comment on above: Performed By: #### C BCWOD, PT, PTT, ALC, MG, PHOS, CMET, LA ####Unless otherwise noted, all testing performed by [facility] [place], [place] [id number]: [id number] Director: Thang Comer M.D. Glucose mass conc 108 mg/dL Normal 80-115 [facility] Comment on above: Performed By: #### C BCWOD, PT, PTT, ALC, MG, PHOS, CMET, LA ####Unless otherwise noted, all testing performed by [place] [phone]: [id number] Director: Thang Comer M.D. Glucose, POCon 07-30-2017 Glucose mass conc 123 mg/dL High [address] [place] [address] Comment on above: Performed By: #### C BCWOD, PT, PTT, ALC, MG, PHOS, CMET, [place] ####Unless otherwise noted, all testing performed by [address] [phone]: [id number] Director: Thang Comer M.D. Glucose mass conc 90 mg/dL Normal 80-115 [facility] Comment on above: Performed By: #### C BCWOD, PT, PTT, ALC, MG, PHOS, CMET, [place] ####Unless otherwise noted, all testing performed by [address] [phone]: [id number] Director: Thang Comer M.D. Glucose mass conc 160 mg/dL High 80-115 [facility] Comment on above: Performed By: #### C BCWOD, PT, PTT, ALC, MG, PHOS, CMET, [place] ####Unless otherwise noted, all testing performed by [address] [phone]: [id number] Director: Thang Comer M.D. Glucose mass conc 122 mg/dL High [address] [place] [address] Comment on above: Performed By: #### C BCWOD, PT, PTT, ALC, MG, PHOS, CMET, [place] ####Unless otherwise noted, all testing performed by [address], [place] [phone]: [id number] Director: Thang Comer M.D. Glucose, POCon 07-29-2017 Glucose mass conc 135 mg/dL High [address] Comment on above: Performed By: #### C BCWOD, PT, PTT, ALC, MG, PHOS, CMET, [place] ####Unless otherwise noted, all testing performed by [address] [phone]: [id number] Director: Thang Comer M.D. Glucose mass conc 122 mg/dL High [address] [place] [address] Comment on above: Performed By: #### C BCWOD, PT, PTT, ALC, MG, PHOS, CMET, [place] ####Unless otherwise noted, all testing performed by [address] [phone]: [id number] Director: Thang Comer M.D. Glucose mass conc 171 mg/dL High [address] [place] [address] Comment on above: Performed By: #### C BCWOD, PT, PTT, ALC, MG, PHOS, CMET, [place] ####Unless otherwise noted, all testing performed by [address] [phone]: [id number] Director: Thang Comer M.D. Glucose mass conc 117 mg/dL High [address] [place] [address] Comment on above: Performed By: #### C BCWOD, PT, PTT, ALC, MG, PHOS, CMET, [place] ####Unless otherwise noted, all testing performed by [address] [phone]: [id number] Director: Thang Comer M.D. 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 Her main complaint is mystomach slightly sick and she feels slightly nauseated.OBJECTIVENo muscle weakness in both upper and lower extremities. She is neurologicallyintact.ASSESSMENT Compression fracture of T2 and T3 associated with other fracture of the spineas noted above. She has history of deep vein thrombosis before.At present, she has no neurosurgical procedure warranted. I would recommendthat the patient should be evaluated to see if she is a candidate for short-stay acute spine injury rehab facility versus home care with home PT and OTand home care. She should be followed by Dr. Salcedo in about a coupleweeks from now. Since there is no neurosurgical procedure warranted atpresent, neurosurgery will sign off this case.EDY BHATIA 07/29/2017 12:15 [id number] 07/29/2017 12:30 AR/MODLElectronically Signed By Luis Chong MD on 30 Jul 2017 16:53:32 GMT Normal [facility] Glucose, POCon 07-28-2017 Glucose mass conc 153 mg/dL High 80-115 [facility] Comment on above: Performed By: #### C BCWOD, PT, PTT, ALC, MG, PHOS, CMET, [place] ####Unless otherwise noted, all testing performed by [address], [place] [phone]: [id number] Director: Thang Comer M.D. Glucose mass conc 138 mg/dL [address] Comment on above: Performed By: #### C BCWOD, PT, PTT, ALC, MG, PHOS, CMET, [place] ####Unless otherwise noted, all testing performed by [address] [phone]: [id number] Director: Thang Comer M.D. Glucose mass conc 152 mg/dL [address] Comment on above: Performed By: #### C BCWOD, PT, PTT, ALC, MG, PHOS, CMET, [place] ####Unless otherwise noted, all testing performed by [address] [phone]: [id number] Director: Thang Comer M.D. Glucose mass conc 127 mg/dL [address] Comment on above: Performed By: #### C BCWOD, PT, PTT, ALC, MG, PHOS, CMET, [place] ####Unless otherwise noted, all testing performed by [address] [phone]: [id number] Director: Thang Comer M.D. Consultationon 07-27-[address] [address]EBMKMARVIN MARTIN [id number] 3DATE 07/26/2017CONSULTATIONCONSULTAN Alden SALCEDO MDNEUROLOGY CONSULTATIONREFERRING PHYSICIANTrauma physician.CHIEF COMPLAINTThoracic spine fractures.HISTORY OF PRESENT ILLNESSThis 66-year-old female slipped down some stairs. She did not have any lossof consciousness. She complains of severe pain in the upper back and upperchest. She also mentions pain in the left arm currently, and now difficultymoving the left arm due to pain. No numbness is identified. She is able tomove the legs strongly.PAST MEDICAL HISTORYType 2 diabetes and diabetic neuropathy.PAST SURGICAL HISTORYC-section x3 and cholecystectomy.ALLERGIESNone.M EDICATIONSMetformin, glipizide, gabapentin.SOCIAL HISTORYNo alcohol use.REVIEW OF SYSTEMSOtherwise negative.PHYSICAL EXAMINATIONGeneral Appearance: Pleasant, in no acute distress.Vital Signs: Afebrile. Vital Signs stable. Blood pressure is nkyevlffj512/69.Musculoskeletal /Neurologic examination: She is alert and oriented x3. Nocranial nerve deficits are identified. She is able to move all extremitieswell with good hand grasp strength except for the left arm, which she says ispainful. She has no numbness. She has no Shin sign. No clonus.LABORATORY DATASodium is 139. INR 1.02. Hemoglobin 10.1, platelet count 205.IMAGINGShowed that she had compression fractures involving T2 and T3 vertebral bodieswith mild retropulsion. She also has spinous process fractures of T1, T2 andT3, and the right pedicles involved on the right side, the right transverseprocess of T2, and posterior left lamina of T3. She also has an acutenondisplaced fracture of the right posterior 1st rib.ASSESSMENT AND PLANUnclear why she is having pain this morning with the left arm. We will orderI cervical and thoracic spine to complete the studies. She will be alsofitted for a cervical thoracic orthosis for the thoracic compressionfractures.EDY STANLEY 07/26/2017 12:08 [id number] 07/26/2017 12:20 DK/MODLElectronically Signed By Tarik Salcedo M.D. on 26 Jul 2017 17:32:47 T Normal [facility] Progress Note [facility], [place] [address]BWHVMARVIN [facility]ARTIN [facility] [id number] [id number] 3DATE 07/27/2017PROGRESS NOTENEUROSURGERY FOLLOWUP CONSULTATION.NEUROSURGERY CONSULTANTLuis Chong MD, FAANS.PROFILEA 66-year-old white female.CURRENT PROBLEMThoracic fracture.SUBJECTIVEThis 66-year-old white female has a known history of type 2 diabetesassociated with diabetic peripheral neuropathy. She stated that she is doingwell as long as she is laying down flat and not moving too much. She statedthat the brace to support her neck and thoracolumbar region needed to bereadjusted so she is back and laying flat with a Jay collar until thecervicothoracic brace is available.OBJECTIVEShe has no muscle weakness in both upper and lower extremities and isneurologically intact.I personally reviewed her imaging studies, confirmed and concur with of the compression fracture T2 and T3, worst at T3, and MRI of thethoracic spine shows that it also involves partially T4 and involves the rightpedicle of T3 and the transverse process of the T2, and the left lamina of T3.She has also a nondisplaced acute fracture of the 1st rib.The cervical MRI scan did not show any nerve root compression or cordcompression.She has decreased bone density on reviewing her scans.RECOMMENDATIONS AND PLANPatient can be mobilized, ambulated as long as she is in the cervicothoracicorthosis to immobilize the compression fracture T2 and T3.I would recommend that the patient have a bone density to make sure she doesnot have osteopenia and/or osteoporosis. If she does, she will need to beevaluated by strip mill operator to place her on medications for this problem.Dictated by SALONI Bhatia, EDY 07/27/2017 14:52 [id number] 07/27/2017 15:12 AR/MODLElectronically Signed By Tarik Salcedo M.D. on 28 Jul 2017 15:36:30 GMT Normal [facility] Glucose, POCon 07-27-2017 Glucose mass conc 164 mg/dL High 80-115 [facility] Comment on above: Performed By: #### C BCWOD, PT, PTT, ALC, MG, PHOS, CMET, [place] ####Unless otherwise noted, all testing performed by [address] [phone]: [id number] Director: Thang Comer M.D. Glucose mass conc 142 mg/dL High 80-115 [facility] Comment on above: Performed By: #### C BCWOD, PT, PTT, ALC, MG, PHOS, CMET, [place] ####Unless otherwise noted, all testing performed by [address] [phone]: [id number] Director: Thang Comer M.D. Glucose mass conc 231 mg/dL High 80-115 [facility] Comment on above: Performed By: #### C BCWOD, PT, PTT, ALC, MG, PHOS, CMET, [place] ####Unless otherwise noted, all testing performed by [address] [phone]: [id number] Director: Thang Comer M.D. Glucose mass conc 130 mg/dL High 80-115 [facility] Comment on above: Performed By: #### C BCWOD, PT, PTT, ALC, MG, PHOS, CMET, [place] ####Unless otherwise noted, all testing performed by [address] [phone]: [id number] Director: Thang Comer M.D. Basic Metabolic Panelon 07-12 Calcium 8.3 mg/dL Low 8.4-10.2 [facility] Comment on above: Performed By: #### C BCWOD, PT, PTT, ALC, MG, PHOS, CMET, [place] ####Unless otherwise noted, all testing performed by [address] [phone]: [id number] Director: Thang Comer M.D. Chloride 108 mmol/L Normal 98-108 [facility] Comment on above: Performed By: #### C BCWOD, PT, PTT, ALC, MG, PHOS, CMET, [place] ####Unless otherwise noted, all testing performed by [address] [phone]: [id number] Director: Thang Comer M.D. CO2 24 mmol/L Normal 21-32 [facility] Comment on above: Performed By: #### C BCWOD, PT, PTT, ALC, MG, PHOS, CMET, [place] ####Unless otherwise noted, all testing performed by [address] [phone]: [id number] Director: Thang Comer M.D. Creatinine 0.72 mg/dL Normal 0.60-1.20 [facility] Comment on above: Performed By: #### C BCWOD, PT, PTT, ALC, MG, PHOS, CMET, [place] ####Unless otherwise noted, all testing performed by [address] [phone]: [id number] Director: Thang Comer M.D. eGFR (black) mL/min/{1.73_m2} Normal [facility] Comment on above: Result Comment: Afri can [place] GFR Calc Performed By: #### C BCWOD, PT, PTT, ALC, MG, PHOS, CMET, [place] ####Unless otherwise noted, all testing performed by [address] [phone]: [id number] Director: Thang Comer M.D. eGFR (non-black) mL/min/{1.73_m2} Normal [facility] Comment on above: Result Comment: Non- GFR CalceGFR is an estimated Glomerular Filtration Rate based on the valueof the patient's serum creatinine. In outpatients, eGFR should be usedas a helpful tool in screening for CKD. In inpatients or patients withacute renal failure, eGFR represents the GFR at the moment of the drawand should be used with caution. Performed By: #### C BCWOD, PT, PTT, ALC, MG, PHOS, CMET, [place] ####Unless otherwise noted, all testing performed by [address] [phone]: [id number] Director: Thang Comer M.D. Glucose mass conc 126 mg/dL High 70-99 [facility] Comment on above: Result Comment: This test result might be falsely depressed or falsely elevated onsamples drawn from patients taking Sulfasalazine and Sulfapyridine.Venipuncture should occur prior to taking either of these drugs. Performed By: #### C BCWOD, PT, PTT, ALC, MG, PHOS, CMET, [place] ####Unless otherwise noted, all testing performed by [address] [phone]: [id number] Director: Thang Comer M.D. Potassium molar conc 4.4 mmol/L Normal 3.5-5.1 [facility] Comment on above: Performed By: #### C BCWOD, PT, PTT, ALC, MG, PHOS, CMET, [place] ####Unless otherwise noted, all testing performed by [address] [phone]: [id number] Director: Thang Comer M.D. Sodium 139 mmol/L Normal 135-145 [facility] Comment on above: Performed By: #### C BCWOD, PT, PTT, ALC, MG, PHOS, CMET, [place] ####Unless otherwise noted, all testing performed by [address] [phone]: [id number] Director: Thang Comer M.D. Urea nitrogen 20 mg/dL Normal 8-25 [facility] Comment on above: Performed By: #### C BCWOD, PT, PTT, ALC, MG, PHOS, CMET, [place] ####Unless otherwise noted, all testing performed by [address] [phone]: [id number] Director: Thang Comer M.D. CBC w/o Diffon 07-26-2017 Erythrocyte distribution width Auto Ratio (RBC) 13.6 % Normal 10.0-14.4 [facility] Comment on above: Performed By: #### C BCWOD, PT, PTT, ALC, MG, PHOS, CMET, [place] ####Unless otherwise noted, all testing performed by [address] [phone]: [id number] Director: Thang Comer M.D. Erythrocytes (RBC) 3.60 M/mcL Low 3.7-5.0 [facility] Comment on above: Performed By: #### C BCWOD, PT, PTT, ALC, MG, PHOS, CMET, [place] ####Unless otherwise noted, all testing performed by [address] [phone]: [id number] Director: Thang Comer M.D. Hematocrit (HCT) 30.7 % Low 34.4-44.8 [facility] Comment on above: Performed By: #### C BCWOD, PT, PTT, ALC, MG, PHOS, CMET, [place] ####Unless otherwise noted, all testing performed by [address] [phone]: [id number] Director: Thang Comer M.D. Hemoglobin mass conc (Bld) 10.1 g/dL Low 11.6-15.4 [facility] Comment on above: Performed By: #### C BCWOD, PT, PTT, ALC, MG, PHOS, CMET, [place] ####Unless otherwise noted, all testing performed by [address] [phone]: [id number] Director: Thang Comer M.D. MCH 28.0 pg Normal 27.9-33.9 [facility] Comment on above: Performed By: #### C BCWOD, PT, PTT, ALC, MG, PHOS, CMET, [place] ####Unless otherwise noted, all testing performed by [address] [phone]: [id number] Director: Thang Comer M.D. MCHC mass conc (RBC) 32.8 g/dL Low 33.1-35.1 [facility] Comment on above: Performed By: #### C BCWOD, PT, PTT, ALC, MG, PHOS, CMET, [place] ####Unless otherwise noted, all testing performed by [address] [phone]: [id number] Director: Thang Comer M.D. MCV 85.4 fL Normal 82.6-98.9 [facility] Comment on above: Performed By: #### C BCWOD, PT, PTT, ALC, MG, PHOS, CMET, [place] ####Unless otherwise noted, all testing performed by [address] [phone]: [id number] Director: Thang Comer M.D. Platelet mean volume (PMV) 7.8 fL Normal 7.0-10.6 [facility] Comment on above: Performed By: #### C BCWOD, PT, PTT, ALC, MG, PHOS, CMET, [place] ####Unless otherwise noted, all testing performed by [address] [phone]: [id number] Director: Thang Comer M.D. Platelets 205 K/mcL Normal 162-402 [facility] Comment on above: Performed By: #### C BCWOD, PT, PTT, ALC, MG, PHOS, CMET, [place] ####Unless otherwise noted, all testing performed by [address] [phone]: [id number] Director: Thang Comer M.D. WBC (Leukocytes) 5.9 K/mcL Normal 3.4-10.6 [facility] Comment on above: Performed By: #### C BCWOD, PT, PTT, ALC, MG, PHOS, CMET, LA ####Unless otherwise noted, all testing performed by [address] [phone]: [id number] Director: Thang Comer M.D. Glucose, POCon 07-26-2017 Glucose mass conc 172 mg/dL High [address] [place] [address] Comment on above: Performed By: #### C BCWOD, PT, PTT, ALC, MG, PHOS, CMET, LA ####Unless otherwise noted, all testing performed by [address] [phone]: [id number] Director: Thang Comer M.D. Glucose mass conc 193 mg/dL High [address] [place] [address] Comment on above: Performed By: #### C BCWOD, PT, PTT, ALC, MG, PHOS, CMET, LA ####Unless otherwise noted, all testing performed by [address] [phone]: [id number] Director: Thang Comer M.D. Glucose mass conc 180 mg/dL High [address] [place] [address] Comment on above: Performed By: #### C BCWOD, PT, PTT, ALC, MG, PHOS, CMET, [place] ####Unless otherwise noted, all testing performed by [address] [phone]: [id number] Director: Thang Comer M.D. Glucose mass conc 138 mg/dL High [address] [place] [address] Comment on above: Performed By: #### C BCWOD, PT, PTT, ALC, MG, PHOS, CMET, [place] ####Unless otherwise noted, all testing performed by [facility] [address], [place] [phone]: [id number] Director: Thang Coemr M.D. Glucose mass conc 218 mg/dL High 80-115 [facility] Comment on above: Performed By: #### C BCWOD, PT, PTT, ALC, MG, PHOS, CMET, LA ####Unless otherwise noted, all testing performed by [address], [place] [phone]: [id number] Director: Thang Comer M.D. MRI CERVICAL SPINE W/O CONTo n 07-26-2017 MRI CERVICAL SPINE W/O CONT Final ReportAccession No: [id number] Performed: Jul 26 2017 2:24PMExamination: MRI CERVICAL SPINE W/O CONTHISTORY: Neck pain and left arm pain after a recent fall. The patient wasfoundhave fractures of the upper thoracic spine on a recent CT scan of thethoracicspine.MRI CERVICAL SPINE W/O CONT: 07/26/2017 2:24 PMCOMPARISON: CT scan cervical spine and thoracic spine 07/25/2017 and MRIthoracic spine 07/26/2017.TECHNIQUE: Sagittal T1, T2, STIR, axial T2, and T2 gradient echo imagesof thecervical spine were obtained.FINDINGS: Several images are degraded by motion artifact. There is a mildcompression fracture of the T2 vertebral body again seen. There is also amoderate burst fracture of the T3 vertebral body with mild retropulsionof 5mm. There is a mild compression fracture of the superior endplate of T4.Thereare nondisplaced fractures again seen to involve the bases of the T1, T2and M0uwwqvfx processes.No compression fracture or subluxation of the cervical spine is seen.There ismild discogenic disease at the C5-C6 level. The bone marrow signalintensityappears age appropriate. No prevertebral soft tissue swelling of thecervicalspine is seen. The craniovertebral junction appears within normal limits.Thesignal intensity of the cervical spinal cord appears grossly within normallimits allowing for some areas of motion artifact projecting over thespinalcord.C2-C3 level: No significant disc herniation, spinal canal stenosis, orforaminal narrowing is seen.C3-C4 level: No significant disc herniation, spinal canal stenosis, orforaminal narrowing is seen.C4-C5 level: No significant disc herniation, spinal canal stenosis, orforaminal narrowing is seen.C5-C6 level: There is a small diffuse disc bulge but this does not appeartocause significant spinal canal stenosis. No foraminal narrowing is seen.C6-C7 level: There is a small central disc protrusion but there is nosignificant spinal canal stenosis. No foraminal narrowing.C7-T1 level: No significant disc herniation, spinal canal stenosis, orforaminal narrowing is seen.IMPRESSION:1. No compression fracture or subluxation of the cervical spine is seenandthere is no significant central spinal canal stenosis.2. There are fractures again seen to involve the T2, T3 and T4 vertebralbodiesand also involving the bases of the T1, T2 and T3 spinous processes.Pleaserefer to the report of the MRI of the thoracic spine of the same date forfurther details regarding these findings.Interpreting Physician: ARDEN BHARDWAJ M.D.Trans: n/a : cc: Normal [facility] MRI THORACIC SPINE W/O CONTo n 07-26-2017 MRI THORACIC SPINE W/O CONT Final ReportAccession No: [id number] Performed: Jul 26 2017 2:01PMExamination: MRI THORACIC SPINE W/O CONTHISTORY: Mid back pain after a recent fall. Left arm pain. The patient wasfound to have compression fractures of T2 and T3 and fractures of thespinousprocesses of the upper thoracic spine on a recent CT scan of the thoracicspine. Please evaluate.MRI thoracic spine 07/26/2017.COMPARISON: CT scan thoracic spine 07/25/2017.TECHNIQUE: Sagittal T1, T2, STIR, axial T2 images of the thoracic spinewereobtained without contrast.FINDINGS: Several images are degraded by motion artifact. There isredemonstration of an acute mild compression fracture of the T2 vertebralbodyand an acute, moderate burst fracture of the T3 vertebral body with lossof 50%of vertebral body height. Retropulsion of T3 of 5 mm appears to causemild tomoderate spinal canal stenosis and appears to mildly indent the anterioraspectof the spinal cord. There are very mild compression fractures of thesuperiorendplates of T4, T5 and T6 with minimal underlying bone marrow edema intheseregions. No other compression fracture of the thoracic spine is seen.There isredemonstration of fractures of the bases of the T1, T2 and T3 spinousprocesses. There is mild increased kyphosis of the upper thoracic spine.The bone marrow signal intensity of the thoracic spine appearsheterogeneous onthe T1 and T2-weighted images and there is patchy decreased T1 anddecreased B1vwshpd intensity involving the majority of the T9 vertebral body.However, thisarea is isointense to bone marrow on the STIR images and this is thereforelikely of a benign etiology such as red marrow. No significant discherniationor foraminal narrowing of the thoracic spine is seen. The signalintensity ofthe thoracic spinal cord appears grossly within normal limits allowingfor someareas of motion artifact projecting over the spinal cord. There appearsto beprobable atelectasis within the dependent portions of the lungsbilaterally.IMPRESSION:1. There is redemonstration of a moderate burst fracture of the P1qoaymzgzqterh with retropulsion of 5 mm causing mild to moderate spinal canalstenosis.There are also acute mild compression fractures of the T2, T4, T5 and E0tzrxfwjwu bodies.2. There is redemonstration of fractures of the bases of the T1, T2 and A6glyhiib processes.3. No significant disc herniation or foraminal narrowing of the thoracicspineis seen.Interpreting Physician: ARDEN BHARDWAJ M.D.Trans: n/a : cc: Normal [facility] Alcohol, Medicalon 8 Ethanol Negative Normal [facility] Comment on above: Performed By: #### C BCWOD, PT, PTT, ALC, MG, PHOS, CMET, [place] ####Unless otherwise noted, all testing performed by [facility] [employer] [facility], [place] [phone]: [id number] Director: Thang Comer M.D. CBC w/o Diffon 07-25-2017 Erythrocyte distribution width Auto Ratio (RBC) 13.6 % Normal 10.0-14.4 [facility] Comment on above: Performed By: #### C BCWOD, PT, PTT, ALC, MG, PHOS, CMET, [place] ####Unless otherwise noted, all testing performed by [address] [id number]: [id number] Director: Thang Comer M.D. Erythrocytes (RBC) 4.10 M/mcL Normal 3.7-5.0 [facility] Comment on above: Performed By: #### C BCWOD, PT, PTT, ALC, MG, PHOS, CMET, [place] ####Unless otherwise noted, all testing performed by [address] [id number]: [id number] Director: Thang Comer M.D. Hematocrit (HCT) 35.0 % Normal 34.4-44.8 [facility] Comment on above: Performed By: #### C BCWOD, PT, PTT, ALC, MG, PHOS, CMET, [place] ####Unless otherwise noted, all testing performed by [address] [id number]: [id number] Director: Thang Comer M.D. Hemoglobin mass conc (Bld) 11.3 g/dL Low 11.6-15.4 [facility] Comment on above: Performed By: #### C BCWOD, PT, PTT, ALC, MG, PHOS, CMET, [place] ####Unless otherwise noted, all testing performed by [address] [phone]: [id number] Director: Thang Comer M.D. MCH 27.7 pg Low 27.9-33.9 [facility] Comment on above: Performed By: #### C BCWOD, PT, PTT, ALC, MG, PHOS, CMET, [place] ####Unless otherwise noted, all testing performed by [address] [phone]: [id number] Director: Thang Comer M.D. MCHC mass conc (RBC) 32.4 g/dL Low 33.1-35.1 [facility] Comment on above: Performed By: #### C BCWOD, PT, PTT, ALC, MG, PHOS, CMET, [place] ####Unless otherwise noted, all testing performed by [address] [phone]: [id number] Director: Thang Comer M.D. MCV 85.5 fL Normal 82.6-98.9 [facility] Comment on above: Performed By: #### C BCWOD, PT, PTT, ALC, MG, PHOS, CMET, [place] ####Unless otherwise noted, all testing performed by [address] [id number]: [id number] Director: Thang Comer M.D. Platelet mean volume (PMV) 8.1 fL Normal 7.0-10.6 [facility] Comment on above: Performed By: #### C BCWOD, PT, PTT, ALC, MG, PHOS, CMET, [place] ####Unless otherwise noted, all testing performed by [address] [phone]: [id number] Director: Thang Comer M.D. Platelets 244 K/mcL Normal 162-402 [facility] Comment on above: Performed By: #### C BCWOD, PT, PTT, ALC, MG, PHOS, CMET, [place] ####Unless otherwise noted, all testing performed by [address] [phone]: [id number] Director: Thang Comer M.D. WBC (Leukocytes) 5.8 K/mcL Normal 3.4-10.6 [facility] Comment on above: Performed By: #### C BCWOD, PT, PTT, ALC, MG, PHOS, CMET, [place] ####Unless otherwise noted, all testing performed by [address] [phone]: [id number] Director: Thang Comer M.D. CHEST (ONE VIEW ONLY)on 07-12 CHEST (ONE VIEW ONLY) Final ReportAccession No: [id number] Performed: Jul 25 2017 7:41PMExamination: CHEST (ONE VIEW ONLY)CHEST X-RAY, 1 VIEWHISTORY: Chest pain.COMPARISON: None.FINDINGS: The cardiac silhouette is prominent but may be in the APtechnique.There are aortic calcifications. The lungs are grossly clear. There are nopleural effusions. There is no pneumothorax.IMPRESSION:No evidence of acute cardiopulmonary disease.Interpreting Physician: ADRI THRASHER M.D.Trans: n/a : cc: Normal [facility] CT BRAIN W/O CONTRASTon 07-12 CT BRAIN W/O CONTRAST Final ReportAccession No: [id number] Performed: Jul 25 2017 8:24PMExamination: CT BRAIN W/O CONTRASTCT BRAIN WITHOUT CONTRASTHISTORY: Headache status post trauma.COMPARISON: None.TECHNIQUE: CT examination of the head without IV contrast was performed.Dosereduction techniques were achieved by using automated exposure controland/oradjustment of mA and/or kV according to patient size and/or use ofiterativereconstruction technique.FINDINGS: There is a right posterior scalp cephalhematoma. The brainparenchymais of normal attenuation. The ventricular and cisternal spaces are withinnormal limits for the patient?s age. There is no evidence for intracranialhemorrhage, mass effect, or hydrocephalus. No extraaxial collection ormidlineshift is identified. There is left frontal, maxillary, and ethmoid sinusmucosal thickening.IMPRESSION:Right posterior scalp hematoma, no acute intracranial pathology.Interpreting Physician: ADRI THRASHER M.D.Trans: n/a : cc: Normal [facility] CT SPINE CERVICAL W/O CONTRA STon 07-25-2017 CT SPINE CERVICAL W/O CONTRAST Final ReportAccession No: [id number] Performed: Jul 25 2017 8:24PMExamination: CT SPINE CERVICAL W/O CONTRASTCt Cervical Spine Without ContrastHistory: Pain.COMPARISON: None.TECHNIQUE: Axial CT images were acquired from the skull base to the upperthoracic spine. Sagittal and coronal reformations were then acquired. Dosereduction techniques were achieved by using automated exposure controland/oradjustment of mA and/or kV according to patient size and/or use ofiterativereconstruction technique. Coronal and sagittal reformations wereperformed.FINDINGS: There is no prevertebral soft tissue swelling. There is noevidenceof acute fracture or subluxation in the cervical spine. There is an acutenondisplaced T1 and T2 spinous process fracture. There is an acutenondisplacedleft T3 lamina fracture. There is an acute nondisplaced right first ribfracture. There are no destructive lesions. There are no degenerativechanges.IMPRESSION: No evidence of acute fracture or subluxation in the cervical spine.Acute nondisplaced T1 and T2 spinous process fractures; acutenondisplaced leftT3 lamina fracture. Recommend emergent CT thoracic spine without contrast.Interpreting Physician: ADRI THRASHER M.D.Trans: n/a : cc: Normal [facility] CT SPINE LUMBAR RECONS ONLYo n 07-25-2017 CT SPINE LUMBAR RECONS ONLY Final ReportAccession No: [id number] Performed: Jul 25 2017 8:36PMExamination: CT SPINE LUMBAR RECONS ONLYCTA CHEST WITH CONTRAST, CTA ABDOMEN WITH CONTRAST, CTA PELVIS WITHCONTRAST,CT THORACIC SPINE WITHOUT CONTRAST, AND CT LUMBAR SPINE WITHOUT CONTRAST,07/25/2017:CLINICAL INDICATION: Trauma. Patient fell down 12 stairs and complains ofsevere upper back pain, chest pain and lower neck pain.COMPARISON: None.TECHNIQUE: IV contrast enhanced axial CTA imaging of the chest, abdomenandpelvis was performed using 75 mL of Isovue-370 intravenous contrast.[place] coronal MPR images are provided with three-dimensionalreconstruction s ofthe aorta.The source data was then utilized for reconstructed images of thethoracic andlumbar spine with sagittal and coronal reconstructions.Dose reduction techniques were achieved by using automated exposurecontroland/or adjustment of mA and/or kV according to patient size and/or use ofiterative reconstruction technique.FINDINGS:CTA CHEST: No mediastinal or great vessel injury is seen. The heart ismildlyenlarged without pericardial effusion. Coronary arterial calcificationsarenoted, most prominent in the left main and LAD. There are moderate aorticcalcifications without dissection or aneurysm. The thyroid gland isunremarkable.Patchy opacity in the bilateral posterior lower lobes favors atelectasisovercontusion, pneumonia or aspiration. No pleural fluid or pneumothorax isseen.CTA ABDOMEN: No solid organ injury is seen. There is suboptimal solidorganenhancement due to the early arterial phase of the CTA exam. Allowing forthis,the liver, pancreas, spleen, adrenal glands and kidneys appear withinnormallimits. Cholecystectomy clips are noted. The nonenhanced stomach and smallbowel are unremarkable.There are fairly dense aortic calcifications without dissection oraneurysm.Very dense splenic arterial calcifications are present.CTA PELVIS: No acute pelvic organ injury is seen. The uterus, ovaries,urinarybladder and pelvic small bowel loops are unremarkable. A normal appendixisseen on image 141.There is moderate stool throughout the colon.CT THORACIC SPINE: There is a fracture through the base of the spinousprocessof T1 on image 10 extending into the posterior right lamina with anadditionalfracture through the right posterior first rib on image 14.There is a moderate acute compression fracture involving the T2 vertebralbodywith minimal retropulsion of the posterior cortex inferiorly. There is afracture through the base of the spinous process of T2 extending into therightlamina with a fracture through the right pedicle and right transverseprocessof T2.There is a moderately severe acute compression fracture involving the V3cjgkqyxbw body with mild retropulsion. No spinal stenosis is seen. Inaddition,there is an acute fracture through the base of the spinous process with anadditional fracture through the bilateral T3 lamina. Mild surroundingparaspinal hematoma is noted.Much milder compression deformities involving the superior endplates ofT4 andT6 appear chronic. No additional acute thoracic spine injury is seen.CT LUMBAR SPINE: No acute lumbar spine fracture or compression deformityisseen. 5 lumbar vertebral bodies are normal in height and are normallyaligned.Disc spaces are maintained. No spinal stenosis or neural foraminalnarrowing isseen. The sacrum and sacroiliac joints appear intact.IMPRESSION:1. Acute compression fractures involving the T2 and T3 vertebral bodieswithmild retropulsion. No spinal stenosis.2. Acute fractures involving the bases of the spinous processes of T1, [id number] extending into the right lamina of T2 and T3, with additionalfractures ofthe right pedicle and right transverse process of T2, and posterior leftlaminaof T3.3. Acute nondisplaced fracture of the right posterior first rib.4. Patchy opacity in the bilateral posterior lower lobes favoringatelectasisover contusion, aspiration or pneumonia. No hemothorax or pneumothorax isseen.5. Coronary arterial calcifications.6. No acute traumatic change in the abdomen, pelvis or lumbar spine.7. Status post cholecystectomy.Interpreting Physician: STEPHEN ISBELL M.D.Trans: istumb : cc: Normal [facility] CT SPINE THORACIC RECONS ONL Yon 07-25-2017 CT SPINE THORACIC RECONS ONLY Final ReportAccession No: [id number] Performed: Jul 25 2017 8:36PMExamination: CT SPINE THORACIC RECONS ONLYCTA CHEST WITH CONTRAST, CTA ABDOMEN WITH CONTRAST, CTA PELVIS WITHCONTRAST,CT THORACIC SPINE WITHOUT CONTRAST, AND CT LUMBAR SPINE WITHOUT CONTRAST,07/25/2017:CLINICAL INDICATION: Trauma. Patient fell down 12 stairs and complains ofsevere upper back pain, chest pain and lower neck pain.COMPARISON: None.TECHNIQUE: IV contrast enhanced axial CTA imaging of the chest, abdomenandpelvis was performed using 75 mL of Isovue-370 intravenous contrast.[place] coronal MPR images are provided with three-dimensionalreconstruction s ofthe aorta.The source data was then utilized for reconstructed images of thethoracic andlumbar spine with sagittal and coronal reconstructions.Dose reduction techniques were achieved by using automated exposurecontroland/or adjustment of mA and/or kV according to patient size and/or use ofiterative reconstruction technique.FINDINGS:CTA CHEST: No mediastinal or great vessel injury is seen. The heart ismildlyenlarged without pericardial effusion. Coronary arterial calcificationsarenoted, most prominent in the left main and LAD. There are moderate aorticcalcifications without dissection or aneurysm. The thyroid gland isunremarkable.Patchy opacity in the bilateral posterior lower lobes favors atelectasisovercontusion, pneumonia or aspiration. No pleural fluid or pneumothorax isseen.CTA ABDOMEN: No solid organ injury is seen. There is suboptimal solidorganenhancement due to the early arterial phase of the CTA exam. Allowing forthis,the liver, pancreas, spleen, adrenal glands and kidneys appear withinnormallimits. Cholecystectomy clips are noted. The nonenhanced stomach and smallbowel are unremarkable.There are fairly dense aortic calcifications without dissection oraneurysm.Very dense splenic arterial calcifications are present.CTA PELVIS: No acute pelvic organ injury is seen. The uterus, ovaries,urinarybladder and pelvic small bowel loops are unremarkable. A normal appendixisseen on image 141.There is moderate stool throughout the colon.CT THORACIC SPINE: There is a fracture through the base of the spinousprocessof T1 on image 10 extending into the posterior right lamina with anadditionalfracture through the right posterior first rib on image 14.There is a moderate acute compression fracture involving the T2 vertebralbodywith minimal retropulsion of the posterior cortex inferiorly. There is afracture through the base of the spinous process of T2 extending into therightlamina with a fracture through the right pedicle and right transverseprocessof T2.There is a moderately severe acute compression fracture involving the G4cbudxnseg body with mild retropulsion. No spinal stenosis is seen. Inaddition,there is an acute fracture through the base of the spinous process with anadditional fracture through the bilateral T3 lamina. Mild surroundingparaspinal hematoma is noted.Much milder compression deformities involving the superior endplates ofT4 andT6 appear chronic. No additional acute thoracic spine injury is seen.CT LUMBAR SPINE: No acute lumbar spine fracture or compression deformityisseen. 5 lumbar vertebral bodies are normal in height and are normallyaligned.Disc spaces are maintained. No spinal stenosis or neural foraminalnarrowing isseen. The sacrum and sacroiliac joints appear intact.IMPRESSION:1. Acute compression fractures involving the T2 and T3 vertebral bodieswithmild retropulsion. No spinal stenosis.2. Acute fractures involving the bases of the spinous processes of T1, [id number] extending into the right lamina of T2 and T3, with additionalfractures ofthe right pedicle and right transverse process of T2, and posterior leftlaminaof T3.3. Acute nondisplaced fracture of the right posterior first rib.4. Patchy opacity in the bilateral posterior lower lobes favoringatelectasisover contusion, aspiration or pneumonia. No hemothorax or pneumothorax isseen.5. Coronary arterial calcifications.6. No acute traumatic change in the abdomen, pelvis or lumbar spine.7. Status post cholecystectomy.Interpreting Physician: STEPHEN ISBELL M.D.Trans: istumb : cc: Normal [facility] CTA ABDOMEN W/ OR W/O AND W/ CONTon 07-25-2017 CTA ABDOMEN W/ OR W/O AND W/ CONT Final ReportAccession No: [id number] Performed: Jul 25 2017 8:36PMExamination: CTA ABDOMEN W/ OR W/O AND W/ CONTCTA CHEST WITH CONTRAST, CTA ABDOMEN WITH CONTRAST, CTA PELVIS WITHCONTRAST,CT THORACIC SPINE WITHOUT CONTRAST, AND CT LUMBAR SPINE WITHOUT CONTRAST,07/25/2017:CLINICAL INDICATION: Trauma. Patient fell down 12 stairs and complains ofsevere upper back pain, chest pain and lower neck pain.COMPARISON: None.TECHNIQUE: IV contrast enhanced axial CTA imaging of the chest, abdomenandpelvis was performed using 75 mL of Isovue-370 intravenous contrast.[place] coronal MPR images are provided with three-dimensionalreconstruction s ofthe aorta.The source data was then utilized for reconstructed images of thethoracic andlumbar spine with sagittal and coronal reconstructions.Dose reduction techniques were achieved by using automated exposurecontroland/or adjustment of mA and/or kV according to patient size and/or use ofiterative reconstruction technique.FINDINGS:CTA CHEST: No mediastinal or great vessel injury is seen. The heart ismildlyenlarged without pericardial effusion. Coronary arterial calcificationsarenoted, most prominent in the left main and LAD. There are moderate aorticcalcifications without dissection or aneurysm. The thyroid gland isunremarkable.Patchy opacity in the bilateral posterior lower lobes favors atelectasisovercontusion, pneumonia or aspiration. No pleural fluid or pneumothorax isseen.CTA ABDOMEN: No solid organ injury is seen. There is suboptimal solidorganenhancement due to the early arterial phase of the CTA exam. Allowing forthis,the liver, pancreas, spleen, adrenal glands and kidneys appear withinnormallimits. Cholecystectomy clips are noted. The nonenhanced stomach and smallbowel are unremarkable.There are fairly dense aortic calcifications without dissection oraneurysm.Very dense splenic arterial calcifications are present.CTA PELVIS: No acute pelvic organ injury is seen. The uterus, ovaries,urinarybladder and pelvic small bowel loops are unremarkable. A normal appendixisseen on image 141.There is moderate stool throughout the colon.CT THORACIC SPINE: There is a fracture through the base of the spinousprocessof T1 on image 10 extending into the posterior right lamina with anadditionalfracture through the right posterior first rib on image 14.There is a moderate acute compression fracture involving the T2 vertebralbodywith minimal retropulsion of the posterior cortex inferiorly. There is afracture through the base of the spinous process of T2 extending into therightlamina with a fracture through the right pedicle and right transverseprocessof T2.There is a moderately severe acute compression fracture involving the G1sksipylys body with mild retropulsion. No spinal stenosis is seen. Inaddition,there is an acute fracture through the base of the spinous process with anadditional fracture through the bilateral T3 lamina. Mild surroundingparaspinal hematoma is noted.Much milder compression deformities involving the superior endplates ofT4 andT6 appear chronic. No additional acute thoracic spine injury is seen.CT LUMBAR SPINE: No acute lumbar spine fracture or compression deformityisseen. 5 lumbar vertebral bodies are normal in height and are normallyaligned.Disc spaces are maintained. No spinal stenosis or neural foraminalnarrowing isseen. The sacrum and sacroiliac joints appear intact.IMPRESSION:1. Acute compression fractures involving the T2 and T3 vertebral bodieswithmild retropulsion. No spinal stenosis.2. Acute fractures involving the bases of the spinous processes of T1, [id number] extending into the right lamina of T2 and T3, with additionalfractures ofthe right pedicle and right transverse process of T2, and posterior leftlaminaof T3.3. Acute nondisplaced fracture of the right posterior first rib.4. Patchy opacity in the bilateral posterior lower lobes favoringatelectasisover contusion, aspiration or pneumonia. No hemothorax or pneumothorax isseen.5. Coronary arterial calcifications.6. No acute traumatic change in the abdomen, pelvis or lumbar spine.7. Status post cholecystectomy.Interpreting Physician: STEPHEN ISBELL M.D.Trans: istumb : cc: Normal [facility] CTA CHEST W/ OR W/OANDW/ CON TRASTon 07-25-2017 CTA CHEST W/ OR W/OANDW/ CONTRAST Final ReportAccession No: [id number] Performed: Jul 25 2017 8:36PMExamination: CTA CHEST W/ OR W/OANDW/ CONTRASTCTA CHEST WITH CONTRAST, CTA ABDOMEN WITH CONTRAST, CTA PELVIS WITHCONTRAST,CT THORACIC SPINE WITHOUT CONTRAST, AND CT LUMBAR SPINE WITHOUT CONTRAST,07/25/2017:CLINICAL INDICATION: Trauma. Patient fell down 12 stairs and complains ofsevere upper back pain, chest pain and lower neck pain.COMPARISON: None.TECHNIQUE: IV contrast enhanced axial CTA imaging of the chest, abdomenandpelvis was performed using 75 mL of Isovue-370 intravenous contrast.[place] coronal MPR images are provided with three-dimensionalreconstruction s ofthe aorta.The source data was then utilized for reconstructed images of thethoracic andlumbar spine with sagittal and coronal reconstructions.Dose reduction techniques were achieved by using automated exposurecontroland/or adjustment of mA and/or kV according to patient size and/or use ofiterative reconstruction technique.FINDINGS:CTA CHEST: No mediastinal or great vessel injury is seen. The heart ismildlyenlarged without pericardial effusion. Coronary arterial calcificationsarenoted, most prominent in the left main and LAD. There are moderate aorticcalcifications without dissection or aneurysm. The thyroid gland isunremarkable.Patchy opacity in the bilateral posterior lower lobes favors atelectasisovercontusion, pneumonia or aspiration. No pleural fluid or pneumothorax isseen.CTA ABDOMEN: No solid organ injury is seen. There is suboptimal solidorganenhancement due to the early arterial phase of the CTA exam. Allowing forthis,the liver, pancreas, spleen, adrenal glands and kidneys appear withinnormallimits. Cholecystectomy clips are noted. The nonenhanced stomach and smallbowel are unremarkable.There are fairly dense aortic calcifications without dissection oraneurysm.Very dense splenic arterial calcifications are present.CTA PELVIS: No acute pelvic organ injury is seen. The uterus, ovaries,urinarybladder and pelvic small bowel loops are unremarkable. A normal appendixisseen on image 141.There is moderate stool throughout the colon.CT THORACIC SPINE: There is a fracture through the base of the spinousprocessof T1 on image 10 extending into the posterior right lamina with anadditionalfracture through the right posterior first rib on image 14.There is a moderate acute compression fracture involving the T2 vertebralbodywith minimal retropulsion of the posterior cortex inferiorly. There is afracture through the base of the spinous process of T2 extending into therightlamina with a fracture through the right pedicle and right transverseprocessof T2.There is a moderately severe acute compression fracture involving the J3kfeurrwsh body with mild retropulsion. No spinal stenosis is seen. Inaddition,there is an acute fracture through the base of the spinous process with anadditional fracture through the bilateral T3 lamina. Mild surroundingparaspinal hematoma is noted.Much milder compression deformities involving the superior endplates ofT4 andT6 appear chronic. No additional acute thoracic spine injury is seen.CT LUMBAR SPINE: No acute lumbar spine fracture or compression deformityisseen. 5 lumbar vertebral bodies are normal in height and are normallyaligned.Disc spaces are maintained. No spinal stenosis or neural foraminalnarrowing isseen. The sacrum and sacroiliac joints appear intact.IMPRESSION:1. Acute compression fractures involving the T2 and T3 vertebral bodieswithmild retropulsion. No spinal stenosis.2. Acute fractures involving the bases of the spinous processes of T1, [id number] extending into the right lamina of T2 and T3, with additionalfractures ofthe right pedicle and right transverse process of T2, and posterior leftlaminaof T3.3. Acute nondisplaced fracture of the right posterior first rib.4. Patchy opacity in the bilateral posterior lower lobes favoringatelectasisover contusion, aspiration or pneumonia. No hemothorax or pneumothorax isseen.5. Coronary arterial calcifications.6. No acute traumatic change in the abdomen, pelvis or lumbar spine.7. Status post cholecystectomy.Interpreting Physician: STEPHEN ISBELL M.D.Trans: istumb : cc: Normal [facility] CTA PELVIS W/ OR W/OANDW/ CO NTRASTon 07-25-2017 CTA PELVIS W/ OR W/OANDW/ CONTRAST Final ReportAccession No: [id number] Performed: Jul 25 2017 8:36PMExamination: CTA PELVIS W/ OR W/OANDW/ CONTRASTCTA CHEST WITH CONTRAST, CTA ABDOMEN WITH CONTRAST, CTA PELVIS WITHCONTRAST,CT THORACIC SPINE WITHOUT CONTRAST, AND CT LUMBAR SPINE WITHOUT CONTRAST,07/25/2017:CLINICAL INDICATION: Trauma. Patient fell down 12 stairs and complains ofsevere upper back pain, chest pain and lower neck pain.COMPARISON: None.TECHNIQUE: IV contrast enhanced axial CTA imaging of the chest, abdomenandpelvis was performed using 75 mL of Isovue-370 intravenous contrast.[place] coronal MPR images are provided with three-dimensionalreconstruction s ofthe aorta.The source data was then utilized for reconstructed images of thethoracic andlumbar spine with sagittal and coronal reconstructions.Dose reduction techniques were achieved by using automated exposurecontroland/or adjustment of mA and/or kV according to patient size and/or use ofiterative reconstruction technique.FINDINGS:CTA CHEST: No mediastinal or great vessel injury is seen. The heart ismildlyenlarged without pericardial effusion. Coronary arterial calcificationsarenoted, most prominent in the left main and LAD. There are moderate aorticcalcifications without dissection or aneurysm. The thyroid gland isunremarkable.Patchy opacity in the bilateral posterior lower lobes favors atelectasisovercontusion, pneumonia or aspiration. No pleural fluid or pneumothorax isseen.CTA ABDOMEN: No solid organ injury is seen. There is suboptimal solidorganenhancement due to the early arterial phase of the CTA exam. Allowing forthis,the liver, pancreas, spleen, adrenal glands and kidneys appear withinnormallimits. Cholecystectomy clips are noted. The nonenhanced stomach and smallbowel are unremarkable.There are fairly dense aortic calcifications without dissection oraneurysm.Very dense splenic arterial calcifications are present.CTA PELVIS: No acute pelvic organ injury is seen. The uterus, ovaries,urinarybladder and pelvic small bowel loops are unremarkable. A normal appendixisseen on image 141.There is moderate stool throughout the colon.CT THORACIC SPINE: There is a fracture through the base of the spinousprocessof T1 on image 10 extending into the posterior right lamina with anadditionalfracture through the right posterior first rib on image 14.There is a moderate acute compression fracture involving the T2 vertebralbodywith minimal retropulsion of the posterior cortex inferiorly. There is afracture through the base of the spinous process of T2 extending into therightlamina with a fracture through the right pedicle and right transverseprocessof T2.There is a moderately severe acute compression fracture involving the W9sjtqdyimj body with mild retropulsion. No spinal stenosis is seen. Inaddition,there is an acute fracture through the base of the spinous process with anadditional fracture through the bilateral T3 lamina. Mild surroundingparaspinal hematoma is noted.Much milder compression deformities involving the superior endplates ofT4 andT6 appear chronic. No additional acute thoracic spine injury is seen.CT LUMBAR SPINE: No acute lumbar spine fracture or compression deformityisseen. 5 lumbar vertebral bodies are normal in height and are normallyaligned.Disc spaces are maintained. No spinal stenosis or neural foraminalnarrowing isseen. The sacrum and sacroiliac joints appear intact.IMPRESSION:1. Acute compression fractures involving the T2 and T3 vertebral bodieswithmild retropulsion. No spinal stenosis.2. Acute fractures involving the bases of the spinous processes of T1, [id number] extending into the right lamina of T2 and T3, with additionalfractures ofthe right pedicle and right transverse process of T2, and posterior leftlaminaof T3.3. Acute nondisplaced fracture of the right posterior first rib.4. Patchy opacity in the bilateral posterior lower lobes favoringatelectasisover contusion, aspiration or pneumonia. No hemothorax or pneumothorax isseen.5. Coronary arterial calcifications.6. No acute traumatic change in the abdomen, pelvis or lumbar spine.7. Status post cholecystectomy.Interpreting Physician: STEPHEN ISBELL M.D.Trans: istumb : cc: Normal [facility] Comprehensive Metabolic Pane fatoumata 07-25-2017 Alanine aminotransferase (ALT) 20 U/L Normal 14-65 [facility] Comment on above: Result Comment: This test result might be falsely depressed or falsely elevated onsamples drawn from patients taking Sulfasalazine and Sulfapyridine.Venipuncture should occur prior to taking either of these drugs. Performed By: #### C BCWOD, PT, PTT, ALC, MG, PHOS, CMET, [place] ####Unless otherwise noted, all testing performed by [address] [phone]: [id number] Director: Thang Comer M.D. Albumin 3.8 g/dL Normal 3.2-5.2 [facility] Comment on above: Performed By: #### C BCWOD, PT, PTT, ALC, MG, PHOS, CMET, [place] ####Unless otherwise noted, all testing performed by [address] [phone]: [id number] Director: Thang Comer M.D. Alkaline phosphatase (ALP) 64 U/L Normal 40-150 [facility] Comment on above: Performed By: #### C BCWOD, PT, PTT, ALC, MG, PHOS, CMET, [place] ####Unless otherwise noted, all testing performed by [address] [phone]: [id number] Director: Thang Comer M.D. Aspartate aminotransferase (AST) 25 U/L Normal 0-45 [facility] Comment on above: Result Comment: This test result might be falsely depressed or falsely elevated onsamples drawn from patients taking Sulfasalazine and Sulfapyridine.Venipuncture should occur prior to taking either of these drugs. Performed By: #### C BCWOD, PT, PTT, ALC, MG, PHOS, CMET, [place] ####Unless otherwise noted, all testing performed by [place] [phone]: [id number] Director: Thang Comer M.D. Bilirubin (total) 0.3 mg/dL Normal 0.3-1.2 [facility] Comment on above: Performed By: #### C BCWOD, PT, PTT, ALC, MG, PHOS, CMET, [place] ####Unless otherwise noted, all testing performed by [place] [phone]: [id number] Director: Thang Comer M.D. Calcium 9.0 mg/dL Normal 8.4-10.2 [facility] Comment on above: Performed By: #### C BCWOD, PT, PTT, ALC, MG, PHOS, CMET, [place] ####Unless otherwise noted, all testing performed by [place] [phone]: [id number] Director: Thang Comer M.D. Chloride 105 mmol/L Normal 98-108 [facility] Comment on above: Performed By: #### C BCWOD, PT, PTT, ALC, MG, PHOS, CMET, [place] ####Unless otherwise noted, all testing performed by [place] [phone]: [id number] Director: Thang Comer M.D. CO2 25 mmol/L Normal 21-32 [facility] Comment on above: Performed By: #### C BCWOD, PT, PTT, ALC, MG, PHOS, CMET, [place] ####Unless otherwise noted, all testing performed by [address] [phone]: [id number] Director: Thang Comer M.D. Creatinine 0.88 mg/dL Normal 0.60-1.20 [facility] Comment on above: Performed By: #### C BCWOD, PT, PTT, ALC, MG, PHOS, CMET, [place] ####Unless otherwise noted, all testing performed by [address] [phone]: [id number] Director: Thang Comer M.D. eGFR (black) mL/min/{1.73_m2} Normal [facility] Comment on above: Result Comment: Afri can [place] GFR Calc Performed By: #### C BCWOD, PT, PTT, ALC, MG, PHOS, CMET, [place] ####Unless otherwise noted, all testing performed by [address] [phone]: [id number] Director: Thang Comer M.D. eGFR (non-black) mL/min/{1.73_m2} Normal [facility] Comment on above: Result Comment: Non- GFR CalceGFR is an estimated Glomerular Filtration Rate based on the valueof the patient's serum creatinine. In outpatients, eGFR should be usedas a helpful tool in screening for CKD. In inpatients or patients withacute renal failure, eGFR represents the GFR at the moment of the drawand should be used with caution. Performed By: #### C BCWOD, PT, PTT, ALC, MG, PHOS, CMET, [place] ####Unless otherwise noted, all testing performed by [facility] [address] [phone]: [id number] Director: Thang Comer M.D. Glucose mass conc 150 mg/dL High 70-99 [facility] Comment on above: Result Comment: This test result might be falsely depressed or falsely elevated onsamples drawn from patients taking Sulfasalazine and Sulfapyridine.Venipuncture should occur prior to taking either of these drugs. Performed By: #### C BCWOD, PT, PTT, ALC, MG, PHOS, CMET, [place] ####Unless otherwise noted, all testing performed by [address] [phone]: [id number] Director: Thang Comer M.D. Potassium molar conc 4.6 mmol/L Normal 3.5-5.1 [facility] Comment on above: Performed By: #### C BCWOD, PT, PTT, ALC, MG, PHOS, CMET, [place] ####Unless otherwise noted, all testing performed by [address] [phone]: [id number] Director: Thang Comer M.D. Protein 8.4 g/dL High 6.0-8.0 [facility] Comment on above: Performed By: #### C BCWOD, PT, PTT, ALC, MG, PHOS, CMET, [place] ####Unless otherwise noted, all testing performed by [address] [phone]: [id number] Director: Thang Comer M.D. Sodium 138 mmol/L Normal 135-145 [facility] Comment on above: Performed By: #### C BCWOD, PT, PTT, ALC, MG, PHOS, CMET, [place] ####Unless otherwise noted, all testing performed by [address] [phone]: [id number] Director: Thang Comer M.D. Urea nitrogen 25 mg/dL Normal 8-25 [facility] Comment on above: Performed By: #### C BCWOD, PT, PTT, ALC, MG, PHOS, CMET, [place] ####Unless otherwise noted, all testing performed by [place] [phone]: [id number] Director: Thang Comer M.D. Drugs of Abuse, Urineon 07-12 Amphetamines,Ur None Detected Normal None Detected [facility] Comment on above: Performed By: #### V BG ####Unless otherwise noted, all testing performed by [phone]: [id number] Director: Thang Comer M.D. Barbiturates,Ur None Detected Normal None Detected [facility] Comment on above: Performed By: #### V BG ####Unless otherwise noted, all testing performed by [place] [phone]: [id number] Director: Thang Comer M.D. Benzodiazepine,Ur None Detected Normal None Detected [facility] Comment on above: Performed By: #### V BG ####Unless otherwise noted, all testing performed by [address] [phone]: [id number] Director: Thang Comer M.D. Cannabinoids,Ur None Detected Normal None Detected [facility] Comment on above: Performed By: #### V BG ####Unless otherwise noted, all testing performed by [address] [phone]: [id number] Director: Thang Comer M.D. Cocaine,Ur None Detected Normal None Detected [facility] Comment on above: Performed By: #### V BG ####Unless otherwise noted, all testing performed by [address] [phone]: [id number] Director: Thang Comer M.D. DOA Cutoffs See comment. Normal [facility] Comment on above: Result Comment: Drug s of Abuse, Urine Presumptive Positive Cutoff Concentrations.Amphetamine/Methamphetamine: 1000 ng/mlBarbiturates: 200 ng/mlBenzodiazepines and metabolities: 200 ng/mlCannabinoids: 50 ng/mlCocaine/Benzoylecgonine: 300 ng/mlMethadone:300 ng/mlOpiates: 300 ng/mlOxycodone/Oxymorphone: 100 ng/ml Performed By: #### V BG ####Unless otherwise noted, all testing performed by [address] [phone]: [id number] Director: Thang Comer M.D. Methadone,Ur None Detected Normal None Detected [facility] Comment on above: Performed By: #### V BG ####Unless otherwise noted, all testing performed by [address] [phone]: [id number] Director: Thang Comer M.D. Opiates,Ur None Detected Normal None Detected [facility] Comment on above: Performed By: #### V BG ####Unless otherwise noted, all testing performed by [address] [phone]: [id number] Director: Thang Comer M.D. Oxycodone, Urine None Detected Normal None Detected [facility] Comment on above: Result Comment: THES E DRUGS OF ABUSE TESTS ARE PROVIDED A MEDICAL SCREENING ONLY.POSITIVE RESULTS ARENOT CONFIRMED BY GCMS Performed By: #### V BG ####Unless otherwise noted, all testing performed by [address] [phone]: [id number] Director: Thang Comer M.D. History And Physical-Dictate don 07-25-2017 History And Physical-Dictated [address] [id number] ARITA Matthieu [facility] [id number] 3ADMIT 07/25/2017HISTORY AND PHYSICALHISTORY OF TRAUMATIC EVENTThe patient was carrying canned goods down some stairs and slipped, fallingdown approximately 12 stairs. The patient states that she did not strike herhead and had no loss of consciousness.CHIEF COMPLAINTSevere pain in the upper back and upper chest. The patient denies any otherpain or injury. The patient was awake, oriented, and stable [facility].PAST MEDICAL HISTORYType 2 diabetes and diabetic neuropathy.PAST SURGICAL HISTORYC-section x3 and cholecystectomy.ALLERGIESNone.H OME MEDICATIONSInclude metformin, glipizide, and gabapentin.SOCIAL HISTORYThe patient denies alcohol, tobacco, or illicit substances.FAMILY HISTORYPositive for diabetes in multiple other family members and coronary arterydisease in the patient's mother.REVIEW OF SYSTEMSTen systems reviewed and are negative except for pertinent positives asdescribed in the History of Traumatic Event.PHYSICAL EXAMINATIONVital Signs: Blood pressure 218/79, pulse 69, respirations 24, oxygensaturation 94% on 2 L by nasal cannula.Primary Survey: Airway spontaneously patent.Breathing: The patient exhibits mild respiratory distress evidenced by mildgrunting with respirations and splinting with respirations. Breath sounds areclear and equal to auscultation bilaterally.Circulation: The skin is pale, warm, and dry. Pulses are 2+ in all 4extremities. 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 Motor and sensory functions grossly intactin all extremities. GCS is 15.Secondary Survey:General appearance: Patient is awake and alert, in moderate painful distresswith upper back pain.Head: Normocephalic and atraumatic. Facial bones are stable and nontender topalpation. Nares are patent bilaterally. Mouth is clear of foreign bodies.There are no noted lacerations or contusions.Eyes: Pupils are equal, round, react to light and accommodate bilaterally.Extraocular movements are intact.Neurologic: Alert, oriented x4. Motor and sensory functions grossly intactin all extremities. Cranial nerves 2-12 are intact. There are no noted focaldeficits.Neck: Cervical spine is immobilized in a rigid cervical collar. The tracheais in the midline. There is tenderness of the lower cervical spinousprocesses. There are no noted step-offs or deformities. No noted wounds orcontusions.Chest: Chest wall expands symmetrically. There is tenderness about the upperanterior chest wall and upper sternum. There is no palpable subcutaneous air.There is no palpable crepitation.Abdomen: Obese, soft, nontender, nondistended. There is no noted guarding orrebound.Pelvis: Stable and nontender to palpation.GI/: There is no blood noted at the urinary meatus. Rectal examination isdeferred.Extremities: There are no noted bony deformities. There is 1 to 2+ pittingedema noted of both ankles. There are no noted wounds or contusions.Skin: Warm and dry.Back: There is marked tenderness of the upper thoracic spinous processes, thelumbar spinous processes are nontender to palpation. Thoracic lumbar spinesare without palpable step-offs, crepitation, or deformities. There are nonoted wounds, contusions, or ecchymoses.LABORATORY DATAPending.RADIOLOGY DATAChest x-ray is done and is reviewed at the bedside and does not appear todemonstrate any acute traumatic injury.ASSESSMENT/PLAN1. Status post fall.2. Acute cervical strain.3. Acute thoracolumbar strain.4. Chest wall contusion.PLANCT scans of the head; cervical, thoracic, lumbar spines; chest, abdomen, andpelvis.This evaluation was completed in accordance with ATLS guidelines. Attendingphysician, Dr. Pete Gusman, was personally present and directly involved inthe assessment, planning, and medical decision making for the patient.Patient disposition to be determined after review of the aforementioneddiagnostic studies.Dictated by Evin Sanchez CNPAttending addendum: I personally examined and evaluated the patient. The CT scanimages and findings were reviewed. I agree with the above assessment by JARRETT Calixto.PETE GUSMAN, [facility] 07/25/2017 19:31 [id number] 07/25/2017 19:51 MWH/MODLElectronically Signed By Pete Gusman M.D. on 12 Aug 2017 19:18:49 GMT Normal [facility] Lactic Acidon 07-25-2017 Lactate 2.0 mmol/L Normal 0.6-2.0 [facility] Comment on above: Performed By: #### C BCWOD, PT, PTT, ALC, MG, PHOS, CMET, [place] ####Unless otherwise noted, all testing performed by [address] [phone]: [id number] Director: Thang Comer M.D. Magnesiumon 07-25-2017 Magnesium 1.8 mg/dL Normal 1.6-2.4 [facility] Comment on above: Performed By: #### C BCWOD, PT, PTT, ALC, MG, PHOS, CMET, [place] ####Unless otherwise noted, all testing performed by [address] [phone]: [id number] Director: Thang Comer M.D. PELVISon 07-25-2017 PELVIS Final Report Accession No: [id number] Performed: Jul 25 2017 7:41PMExamination: PELVISSINGLE FRONTAL VIEW OF THE PELVIS, 07/25/2017 7:41 PM:COMPARISON: None.CLINICAL HISTORY: Trauma - Level 2 .FINDINGS: The bones are demineralized. Patient is slightly rotated to theleft.No acute fracture, subluxation, or dislocation identified. Osteoarthriticchanges of the sacroiliac and hip joints bilaterally. Some vascularcalcifications are present.IMPRESSION:No acute osseous abnormality identified as described above. The bones aredemineralized with degenerative changes as described above. Vascularcalcifications.[facility] Physician: PITER WILSON M.D.Trans: bminni : cc: Normal [facility] Partial Thromboplastin Timeo n 07-25-2017 aPTT 31 s Normal 23.0-34.0 [facility] Comment on above: Result Comment: Jack booker therapeutic range for PTT is 68-104 sec. Performed By: #### C BCWOD, PT, PTT, ALC, MG, PHOS, CMET, [place] ####Unless otherwise noted, all testing performed by [address] [phone]: [id number] Director: Thang Comer M.D. Phosphoruson 07-25-2017 Phosphate 2.9 mg/dL Normal 2.8-4.1 [facility] Comment on above: Performed By: #### C BCWOD, PT, PTT, ALC, MG, PHOS, CMET, LA ####Unless otherwise noted, all testing performed by [address] [phone]: [id number] Director: Thang Comer M.D. Protimeon 07-25-2017 INR Coag RelTime (PPP) 1.02 {INR} Normal [facility] Comment on above: Result Comment: The [place] [employer] recommended therapeutic rangefor Warfarin (Coumadin) therapy goals:PROPHYLAXIS/TREATMENT of:INRVenous Thrombosis, Pulmonary Embolism2.0-3.0Prevention of VTE (Orthopedic Surgery)2.0-3.0Atrial Fibrillation2.0-3.0Myocardial Infarction2.0-3.0Mechanical Prosthetic Heart Valves (Aortic position)2.0-3.0Mechanical Prosthetic Heart Valves (Mitral Position)2.5-3.5American College of Chest [employer]icians evidence-based clinical practiceguidelines. CHEST. 2012 (9th ed) Performed By: #### C BCWOD, PT, PTT, ALC, MG, PHOS, CMET, [place] ####Unless otherwise noted, all testing performed by [address] [phone]: [id number] Director: Thang Comer M.D. Prothrombin time (PT) Coag time (PPP) 13.1 s Normal 11.8-14.3 [facility] Comment on above: Performed By: #### C BCWOD, PT, PTT, ALC, MG, PHOS, CMET, [place] ####Unless otherwise noted, all testing performed by [address] [phone]: [id number] Director: Thang Comer M.D. Type and Screenon 07-25-2017 Type and Screen Negative Normal [facility] Comment on above: Performed By: #### V BG ####Unless otherwise noted, all testing performed by [address] [phone]: [id number] Director: Thang Comer M.D. Urinalysis, Routineon 2017 Bilirubin,Urine Negative Normal NEG;NEGATI VE [facility] Comment on above: Performed By: #### V BG ####Unless otherwise noted, all testing performed by [place] [phone]: [id number] Director: Thang Comer M.D. Blood,Urine Negative Normal NEG;NEGATI VE [facility] Comment on above: Performed By: #### V BG ####Unless otherwise noted, all testing performed by [address]8509CLIA: [id number] Director: Thang Comer M.D. Ketone,Urine Negative Normal NEG;NEGATI VE [facility] Comment on above: Performed By: #### V BG ####Unless otherwise noted, all testing performed by [place] [id number]: [id number] Director: Thang Comer M.D. Leuk.Esterase,Urin e Negative Normal Negative [facility] Comment on above: Performed By: #### V BG ####Unless otherwise noted, all testing performed by [address]8509CLIA: [id number] Director: Thang Comer M.D. Nitrite,Urine Negative Normal NEG;NEGATI VE [facility] Comment on above: Performed By: #### V BG ####Unless otherwise noted, all testing performed by [place] [phone]: [id number] Director: Thang Comer M.D. Protein,Urine 100 mg/dL High < 30 [facility] Comment on above: Performed By: #### V BG ####Unless otherwise noted, all testing performed by [address] [phone]: [id number] Director: Thang Comer M.D. Specific [place],Urine 1.006 Normal 1.003-1.02 9 [facility] Comment on above: Performed By: #### V BG ####Unless otherwise noted, all testing performed by [place] [id number]: [id number] Director: Thang Comer M.D. Squamous Epithelial < 1 Normal 0-40 [facility] Comment on above: Performed By: #### V BG ####Unless otherwise noted, all testing performed by [address] [phone]: [id number] Director: Thang Comer M.D. Urine, character Clear Normal [facility] Comment on above: Performed By: #### V BG ####Unless otherwise noted, all testing performed by [place] [phone]: [id number] Director: Thang Comer M.D. Urine, color Straw Normal [facility] Comment on above: Performed By: #### V BG ####Unless otherwise noted, all testing performed by [address] [phone]: [id number] Director: Thang Comer M.D. Urine, erythrocytes in sediment by area /[HPF] Normal 0-5 [facility] Comment on above: Performed By: #### V BG ####Unless otherwise noted, all testing performed by [address] [phone]: [id number] Director: Thang Comer M.D. Urine, glucose presence Negative Normal NEG;NEGATI VE [facility] Comment on above: Performed By: #### V BG ####Unless otherwise noted, all testing performed by [place] [phone]: [id number] Director: Thang Comer M.D. Urine, leukocytes in sedmiment 1 /[HPF] Normal 0-5 [facility] Comment on above: Performed By: #### V BG ####Unless otherwise noted, all testing performed by [address] [phone]: [id number] Director: Thang Comer M.D. Urine, pH 7.0 [pH] Normal 4.5-8.0 [facility] Comment on above: Performed By: #### V BG ####Unless otherwise noted, all testing performed by [address] [phone]: [id number] Director: Thang Comer M.D. Urobilinogen,Urine < 2.0 Normal <2 [facility] Comment on above: Performed By: #### V BG ####Unless otherwise noted, all testing performed by [address] [phone]: [id number] Director: Thang Comer M.D. Venous Blood Gason 8 Allens Test N/A Normal [facility] Comment on above: Performed By: #### V BG ####Unless otherwise noted, all testing performed by [address] [phone]: [id number] Director: Thang Comer M.D. Base Excess, Venous 1.3 mmol/L Normal -2.0-2.0 [facility] Comment on above: Performed By: #### V BG ####Unless otherwise noted, all testing performed by [address] [phone]: [id number] Director: Thang Comer M.D. Blood Gas Instrument ;ED Normal [facility] Comment on above: Performed By: #### V BG ####Unless otherwise noted, all testing performed by [address] [phone]: [id number] Director: Thang Comer M.D. Body temperature 37.0 Celsius Normal 36.0-38.0 [facility] Comment on above: Performed By: #### V BG ####Unless otherwise noted, all testing performed by [address] [phone]: [id number] Director: Thang Comer M.D. CO2 39.4 mm Hg Low 41-51 [facility] Comment on above: Performed By: #### V BG ####Unless otherwise noted, all testing performed by [address] [phone]: [id number] Director: Thang Comer M.D. Result Comment: Valu e below reference range Drawn By (Bld Gas) Lab Normal [facility] Comment on above: Performed By: #### V BG ####Unless otherwise noted, all testing performed by [address] [phone]: [id number] Director: Thang Comer M.D. FIO2 21.0 % Normal 21-100 [facility] Comment on above: Performed By: #### V BG ####Unless otherwise noted, all testing performed by [address] [id number]: [id number] Director: Thang Comer M.D. Hematocrit (HCT) 35.0 % Low 36-46 [facility] Comment on above: Performed By: #### V BG ####Unless otherwise noted, all testing performed by [address] [phone]: [id number] Director: Thang Comer M.D. Hemoglobin mass conc (Bld) 70.3 % High 40-70 [facility] Comment on above: Result Comment: Valu e above reference range Performed By: #### V BG ####Unless otherwise noted, all testing performed by [address] [phone]: [id number] Director: Thang Comer M.D. Hemoglobin mass conc (Bld) 67.8 % Low 92-99 [facility] Comment on above: Performed By: #### V BG ####Unless otherwise noted, all testing performed by [address] [phone]: [id number] Director: Thang Comer M.D. Hemoglobin mass conc (Bld) 2.6 g/dL Normal [facility] Comment on above: Performed By: #### V BG ####Unless otherwise noted, all testing performed by [address] [phone]: [id number] Director: Thang Comer M.D. Hemoglobin mass conc (Bld) 28.7 % Normal [facility] Comment on above: Performed By: #### V BG ####Unless otherwise noted, all testing performed by [address] [phone]: [id number] Director: Thang Comer M.D. Hemoglobin mass conc (Bld) 0.9 g/dL Normal < 2.0 [facility] Comment on above: Performed By: #### V BG ####Unless otherwise noted, all testing performed by [address] [phone]: [id number] Director: Thang Comer M.D. Hemoglobin mass conc (Bld) 11.4 g/dL Low 12.0-16.0 [facility] Comment on above: Result Comment: Valu e below reference range Performed By: #### V BG ####Unless otherwise noted, all testing performed by [address] [phone]: [id number] Director: Tahng Comer M.D. O2 CT, Venous 4.9 mmol/L Normal [facility] Comment on above: Performed By: #### V BG ####Unless otherwise noted, all testing performed by [address] [phone]: [id number] Director: Thang Comer M.D. O2 Device Room Air Normal [facility] Comment on above: Performed By: #### V BG ####Unless otherwise noted, all testing performed by [address] [phone]: [id number] Director: Thang Comer M.D. pH (temp conv.), Venous 7.424 High 7.32-7.42 [facility] Comment on above: Performed By: #### V BG ####Unless otherwise noted, all testing performed by [address] [phone]: [id number] Director: Thang Comer M.D. pH, Venous 7.424 High 7.32-7.42 [facility] Comment on above: Result Comment: Valu e above reference range Performed By: #### V BG ####Unless otherwise noted, all testing performed by [address] [phone]: [id number] Director: Thang Comer M.D. pO2(temp conv.), Venous 36.0 mm Hg Normal 25-40 [facility] Comment on above: Performed By: #### V BG ####Unless otherwise noted, all testing performed by [address] [phone]: [id number] Director: Thang Comer M.D. pO2, Venous 36.0 mm Hg Normal 25-40 [facility] Comment on above: Performed By: #### V BG ####Unless otherwise noted, all testing performed by [address] [phone]: [id number] Director: Thang Comer M.D. Site (Bld Gas) VLINE Normal [facility] Comment on above: Performed By: #### V BG ####Unless otherwise noted, all testing performed by [address] [phone]: [id number] Director: Thang Comer M.D. VPO2 25.7 mmol/L Normal 24-28 [facility] Comment on above: Performed By: #### V BG ####Unless otherwise noted, all testing performed by [place] [phone]: [id number] Director: Thang Comer M.D. iSTAT Pediatric Panelon - Chloride 105 mmol/L Normal 98-109 [facility] Comment on above: Performed By: #### E RPED ####Unless otherwise noted, all testing performed by [address] [phone]: [id number] Director: Thang Comer M.D. CO2 24 mmol/L Normal 23-32 [facility] Comment on above: Performed By: #### E RPED ####Unless otherwise noted, all testing performed by [place] [phone]: [id number] Director: Thang Comer M.D. Creatinine 1.0 mg/dL Normal 0.60-1.20 [facility] Comment on above: Performed By: #### E RPED ####Unless otherwise noted, all testing performed by [address] [phone]: [id number] Director: Thang Comer M.D. Glucose mass conc 150 mg/dL High 70-99 [facility] Comment on above: Performed By: #### E RPED ####Unless otherwise noted, all testing performed by [address] [phone]: [id number] Director: Thang Comer M.D. Hematocrit (HCT) 32 % Low 38.0-51.0 [facility] Comment on above: Performed By: #### E RPED ####Unless otherwise noted, all testing performed by [address] [phone]: [id number] Director: Thang Comer M.D. Hemoglobin mass conc (Bld) 10.9 g/dL Low 12.0-17.0 [facility] Comment on above: Performed By: #### E RPED ####Unless otherwise noted, all testing performed by [address] [phone]: [id number] Director: Thang Comer M.D. Ionized Calcm 1.14 mmol/L Normal 1.12-1.32 [facility] Comment on above: Performed By: #### E RPED ####Unless otherwise noted, all testing performed by [address] [phone]: [id number] Director: Thang Comer M.D. Potassium molar conc 4.5 mmol/L Normal 3.5-4.9 [facility] Comment on above: Performed By: #### E RPED ####Unless otherwise noted, all testing performed by [address] [phone]: [id number] Director: Thang Comer M.D. Sodium 140 mmol/L Normal 136-141 [facility] Comment on above: Performed By: #### E RPED ####Unless otherwise noted, all testing performed by [address] [phone]: [id number] Director: Thang Comer M.D. Urea nitrogen 25 mg/dL Normal 8-26 [facility] Comment on above: Performed By: #### E RPED ####Unless otherwise noted, all testing performed by [address] [phone]: [id number] Director: Thang Comer M.D. 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 - Signs and symptoms of endophthalmitis reviewed with pt. - Patient very concerned about cost of injections and is unsure aboututilizing any financial assistance prorgrams - start ketorlac four times a day both eyes and follow up in 6-8 weeks tore-evalH25.13 Nuclear sclerotic cataract, bilateralComment: stable/obsAny documentation recorded by the scribe accurately reflects the service Ipersonally performed and the decisions made by myself, Lisette Hernandez MD. Ihave confirmed and edited as necessary the relevant ophthalmic history, ROS,and the neuro exam findings as obtained by others. I have seen and examinedMarvin Simons. I have discussed the case and the management of this patient'scare with the Resident/Fellow, if applicable. I also have reviewed and agreewith the assessment and plan as stated above and agree with all of its relevantcomponents.Referring Provider: THELMA ETIENNE [[id number]]Allergies As of Date: 12/21/2016(No Known Allergies)Date Reviewed: 12/21/2016Reviewed by: Lisette Hernandez - Fully AssessedReason for Visit: Type 2 diabetes [Other] Cmt: Diabetic x 20 years, blood sugar runs in the 80's, not checked daily. Last A1C unknown Blurry Vision Both Eyes [2822] Cmt: Right vision has been poor for many years per patient Distortions in vision [Other]Reason For Visit History RecordedPrimary Visit Diagnosis:Type 2 diabetes mellitus with both eyes affected by moderate nonproliferative retinopathy and macular edema, without long-term current use of insulin ([facility]) [E11.3313] Other Visit Diagnosis:Nuclear sclerotic cataract, bilateral [H25.13]Order(s):DILATED FUNDUS EXAM [] Order #: [id number]: 1 IOP MEASUREMENT [] Order #: [id number]: 1 OCT MACULA CIRRUS OU (BOTH EYES) [21291014] Order #: [id number]: 1 DILATED FUNDUS EXAM [] Order #: [id number]: 1 FUTURE IOP MEASUREMENT [] Order #: [id number]: 1 FUTURE OCT MACULA CIRRUS OU (BOTH EYES) [21291014] Order #: [id number]: 1 FUTURE Ketorolac Tromethamine (ACLUAR LS) 0.4 % dropUse 1 Drop in both eyes four times daily.Disp: 1 BottleRfl: 4Prescriptions as of 12/21/2016 Sig: GABAPENTIN 400 MG CAPSULE Take 1 capsule by mouth three* METFORMIN 1,000 MG TABLET Take 1 tablet by mouth twice * GLIPIZIDE 5 MG TABLET Take 1 tablet by mouth once d* KETOROLAC 0.4 % EYE DROPS Use 1 Drop in both eyes four *Problem List As Of Date 12/21/2016 Noted Resolved Type 2 diabetes mellitus with both eyes affecte*INVALID FOR* Nuclear sclerotic cataract [H25.10] INVALID FOR*Prescriptions ordered this encounter Disp Refills Start End KETOROLAC 0.4 % EYE DROPS 1 Ho* 4 12/21/2016 Route: BOTH EYES Sig: Use 1 Drop in both eyes four times daily.Follow-up and Disposition History RecordedLetter TextEncounter Number: [id number] Status:Closed by LISETTE HERNANDEZ MD on 12/22/16 [facility] PROGRESSon 12-21-2016 PROGRESS HNO ID: [id number] thor: Lisette Storm: (none)Author Type: PhysicianType: Progress NotesFiled: 12/22/2016 2:33 PMNote Text:Referred by Dr Etienne for diabetic retinopathy and macular edema.ASSESSMENT/PLAN:E11.3313 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 - Signs and symptoms of endophthalmitis reviewed with pt. - Patient very concerned about cost of injections and is unsure aboututilizing any financial assistance prorgrams - start ketorlac four times a day both eyes and follow up in 6-8 weeks tore-evalH25.13 Nuclear sclerotic cataract, bilateralComment: stable/obsAny documentation recorded by the scribe accurately reflects the service Ipersonally performed and the decisions made by myself, Lisette Hernandez MD.I have confirmed and edited as necessary the relevant ophthalmic history,ROS, and the neuro exam findings as obtained by others. I have seen andexamined Marvin Simons. I have discussed the case and the management ofthis patient's care with the Resident/Fellow, if applicable. I also havereviewed and agree with the assessment and plan as stated above and agreewith all of its relevant components. Normal [facility] Vital Signs Date Time Vital Sign Value Performing Clinician Florentin pickard 01-23-2025 09:20-0400 Body height 157.[address] Mallory Bahena MD Work Phone: [facility] 01-23-2025 09:20-0400 Body mass index (BMI) [Ratio] 22.6 kg/m2 Dr. Mallory Bahena MD Work Phone: [facility] 01-23-2025 09:20-0400 Body weight 56.[address] Mallory Bahena MD Work Phone: [facility] 01-23-2025 09:20-0400 Diastolic blood pressure 66 mm[Hg] Dr. Mallory Bahena MD Work Phone: [facility] 01-23-2025 09:20-0400 Respiratory rate 16 /min Dr. Mallory Bahena MD Work Phone: [facility] 01-23-2025 09:20-0400 Systolic blood pressure 134 mm[Hg] Dr. Mallory Bahena MD Work Phone: [facility] 07-09-2023 10:02-0500 Diastolic blood pressure 67 mm[Hg] Marlen Jernigan MD Work Phone: [facility] 07-09-2023 10:02-0500 Heart rate 82 /min Marlen Jernigan MD Work Phone: [facility] 07-09-2023 10:02-0500 SaO2% (BldA) [Mass fraction] 91 % Marlen Jernigan MD Work Phone: [facility] 07-09-2023 10:02-0500 Systolic blood pressure 128 mm[Hg] Marlen Jernigan MD Work Phone: [facility] 07-09-2023 09:53-0500 Body height 154.9 cm Marlen Jernigan MD Work Phone: [facility] 07-09-2023 09:53-0500 Body mass index (BMI) [Ratio] 28.53 kg/m2 Marlen Jernigan MD Work Phone: [facility] 07-09-2023 09:53-0500 Body weight 68.49 kg Marlen Jernigan MD Work Phone: [facility] 10-30-2017 09:19-0400 BMI (Body Mass Index) 28.91 kg/m2 Tarik Warrens [facility] 10-30-2017 09:19-0400 Body Temperature 98.29 [degF] Tarik Warrens [facility] 10-30-2017 09:19-0400 BP Diastolic 89 mm[Hg] Tarik Burkettmobrenna [facility] 10-30-2017 09:19-0400 BP Systolic 162 mm[Hg] Tarik Burkettmos [facility] 10-30-2017 09:19-0400 Height 154.9 cm Tarik Burkettmobrenna [facility] 10-30-2017 09:19-0400 Pulse (Heart Rate) 64 /min Dionysios Ryironomos [facility] 10-30-2017 09:19-0400 Respiratory Rate 16 /min Dionysios Ryironomos [facility] 10-30-2017 09:19-0400 Weight 69.4 kg Dionykishaos Hongnomos [facility] 10-02-2017 09:34-0400 BMI (Body Mass Index) 28.91 kg/m2 Dionysios Hongnomos [facility] 10-02-2017 09:34-0400 Body Temperature 98.91 [degF] Dionysios Ryironomos [facility] 10-02-2017 09:34-0400 BP Diastolic 81 mm[Hg] Dionysios Ryironomos [facility] 10-02-2017 09:34-0400 BP Systolic 149 mm[Hg] Dionysios Hongnomos [facility] 10-02-2017 09:34-0400 Height 154.9 cm Dioomidsios Hongnomos [facility] 10-02-2017 09:34-0400 Pulse (Heart Rate) 67 /min Dionysios Ryironomos [facility] 10-02-2017 09:34-0400 Respiratory Rate 16 /min Dionysios Hongnomos [facility] 10-02-2017 09:34-0400 Weight 69.4 kg Dioomidsios Hongnorandys [facility] 08-21-2017 15:39-0400 BMI (Body Mass Index) 28.91 kg/m2 Dionysios Ryironomos [facility] 08-21-2017 15:39-0400 Body Temperature 98.8 [degF] Dionysios Ryironomos [facility] 08-21-2017 15:39-0400 BP Diastolic 61 mm[Hg] Dionysios Klironomos [facility] 08-21-2017 15:39-0400 BP Systolic 126 mm[Hg] Dionysios Klironomos [facility] 08-21-2017 15:39-0400 Height 154.9 cm Dionysios Hongnomos [facility] 08-21-2017 15:39-0400 Pulse (Heart Rate) 67 /min Dionysios Ryironomos [facility] 08-21-2017 15:39-0400 Respiratory Rate 12 /min Tarik Salcedo [facility] 08-21-2017 15:39-0400 Weight 69.4 kg Tarik Salcedo [facility] 08-14-2017 13:05-0500 BMI (Body Mass Index) 28.91 kg/m2 Tarik Salcedo [facility] 08-14-2017 13:05-0500 BP Diastolic 79 mm[Hg] Tarik Salcedo [facility] 08-14-2017 13:05-0500 BP Systolic 146 mm[Hg] Tarik Salcedo [facility] 08-14-2017 13:05-0500 Height 154.9 cm Tarik Salcedo [facility] 08-14-2017 13:05-0500 Pulse (Heart Rate) 64 /min Tarik Salcedo [facility] 08-14-2017 13:05-0500 Weight 69.4 kg Tarik Salcedo [facility] 08-07-2017 13:46-0500 Body Temperature 98.4 [degF] [facility] 08-07-2017 13:46-0500 BP Diastolic 60 mm[Hg] [facility] 08-07-2017 13:46-0500 BP Systolic 149 mm[Hg] [facility] 08-07-2017 13:46-0500 Pulse (Heart Rate) 66 /min [facility] 08-07-2017 13:46-0500 Pulse Oximetry 97 % [facility] 08-07-2017 13:46-0500 Respiratory Rate 16 /min [facility] 08-07-2017 13:46-0500 Weight 69.4 [facility] Encounters Encounter Date Encounter Type Care Provider Facility Start: 02-03-2025 ambulatory [facility] Facility:[facility] Start: 01-23-2025 End: 01-23-[address] Mallory Bahena MD -[facility] Work Phone: Start: 01-23-2025 End: 01-[facility] Start: 07-17-2023 End: 07-18-2023 ambulatory MARLEN JERNIGAN [facility] Start: 07-09-2023 End: 07-09-2023 ambulatory DEVAN LEWIS [facility] Start: 07-09-2023 End: 07-09-2023 Office outpatient visit 25 minutes Marlen Jernigan MD Work Phone: [facility] Comment on above: Chronic heart failur e with preserved ejection fraction (HCC) (Primary Dx); Chest pain, unspecified type; Lipid screening Start: 06-14-2023 End: 06-17-2023 Evaluation and management of inpatient [facility] Start: 07-16-2018 End: 07-17-2018 Patient encounter procedure RICHARD LUNA Facility:[facility] Start: 07-02-2018 Patient encounter procedure RICHARD LUNA Facility:[facility] Start: 06-28-2018 Patient encounter procedure RICHARD LUNA Facility:[facility] Start: 04-02-2018 End: 04-03-2018 Patient encounter procedure IRCHARD LUNA Facility:[facility] Start: 04-02-2018 End: 04-03-2018 Patient encounter procedure RICHARD LUNA Facility:[facility] Start: 03-14-2018 End: 03-15-2018 Patient encounter procedure RICHARD LUNA Facility:[facility] Start: 10-30-2017 Ambulatory Dionysios Klironomos Fa cility:[facility] Start: 10-30-2017 End: 10-30-2017 Office outpatient visit 10 minutes Dionysios Klironomos Work Phone: [facility] Start: 10-30-2017 End: 10-30-2017 Ambulatory Dionysios Klironomos Work Phone: [facility] Start: 10-02-2017 Ambulatory Dionysios Klironomos Fa cility:[facility] Start: 10-02-2017 End: 10-02-2017 Office/outpatient visit, est, level 2 Dionysios Klironomos Work Phone: [facility] Start: 10-02-2017 End: 10-02-2017 Ambulatory Dionysios Klironomos Work Phone: [facility] Start: 09-12-2017 End: 09-13-2017 Patient encounter procedure RICHARD LUNA Facility:[facility] Start: 08-21-2017 Ambulatory Dionysios Klironomos Fa cility:[facility] Start: 08-21-2017 Office/outpatient visit, est, level 2 Dionysios Klironomos Work Phone: [facility] Start: 08-14-2017 Office/outpatient visit, est, level 2 Dionysios Klironomos Work Phone: [facility] Start: 08-07-2017 Office/outpatient visit, est, level 2 Donovan Flannerymario albertoino Work Phone: [facility] Start: 07-25-2017 End: 07-31-2017 Evaluation and management of inpatient Ashu Castellanos Facility:[facility] Start: 12-21-2016 End: 12-26-2016 Ambulatory LISETTE HERNANDEZ [facility] of Treatment Date Care Activity Detail Author Start: 12-13-2023 Hemoglobin A1c measurement A1C [facility] Start: 07-17-2023 End: 07-17-2023 Patient encounter procedure 07/17/2023 9:45 AM EST Appointment [facility] [address] [place] [address] [phone] Marlen Jernigan MD [address] [place] [id number] [facility] Start: 07-17-2023 End: 07-17-2023 Patient encounter procedure [facility] Start: 02-09-2023 Influenza vaccination Sequenti al Influenza Vaccine (#1) [facility] Start: 02-09-2018 Influenza vaccination SEQUENTI AL INFLUENZA VACCINE (Season Ended) [facility] Start: 11-01-2017 End: 10-02-2018 CT Thoracic Spine Without Contrast CT Thoracic Spine Without Contrast Routine Closed compression fracture of thoracic vertebra with routine healing, subsequent encounter Expected: 11/01/2017, Expires: 10/02/2018 [facility] Start: 10-30-2017 End: 10-30-2017 Ambulatory [facility] Start: 10-02-2017 Ambulatory 10/02/2017 Off ice Visit Neurology Tarik Salcedo MD [address] [place] [address] [phone] [facility] Start: 10-02-2017 Ambulatory 10/02/2017 Hos pital Encounter Tarik Salcedo MD [address] [place] [address] [phone] [facility] Start: 2017 Fall risk assessment Falls Risk Asse ssment [facility] Start: 2017 Pneumococcal vaccination PNEUM OCOCCAL VACCINE AGE 65+ (1 of 2 - PCV13) [facility] Start: 2017 Pneumococcal Vaccine : Age 65+ (1 of 1 - PCV) Pneumococcal Vaccine: Age 65+ (1 of 1 - PCV) [facility] Start: 08-21-2017 Ambulatory [facility] Start: 08-14-2017 Ambulatory 08/14/2017 Off ice Visit Neurology Tarik Salcedo MD [address] [place] [address] [phone] [facility] Start: 02-09-2017 Influenza vaccination SEQUENTI AL INFLUENZA VACCINE (#1) [facility] Start: 2012 Zoster vacc, sc ZOSTER VACCINE [facility] Start: 2002 Administration of he rpes zoster vaccine Zoster Vaccines (1 of 2) [facility] Start: 2002 Screening for malign ant neoplasm of colon Flexible sigmoidoscopy [facility] Start: 1992 Screening for malign ant neoplasm of breast Mammogram [facility] Start: 1970 Hepatitis C screening Hepatitis C Sc reening [facility] Start: 1964 Depression screening using PHQ-9 (Patient Health Questionnaire 9) score Depression Screening (PHQ-2/9) [facility] Start: 1962 Diabetic foot examination Diabetic Foot Exam [facility] Start: 1962 Glaucoma screening Diabetic Eye Exam [facility] Start: 1962 Urine screening for protein Urine Microalbumin [facility] Start: 09-19-1955 History and physical examination, annual for health maintenance Wellness Visit [facility] Start: 03-20-1953 COVID-19 Vaccine (#1) COVID-19 Vacci ne (#1) [facility] Start: 1952 Screening for malign ant neoplasm of colon [facility] Start: 1952 HEPATITIS C SCREENING HEPATITIS C SC REENING [facility] Start: 1952 Screening colonoscopy [facility]COPY [facility] Start: 1952 Screening for malign ant neoplasm of cervix PAP SMEAR [facility] Start: 1952 End: 1952 Screening for osteoporosis DEXA SCAN [facility] Start: 1952 End: 1952 Tetanus vaccination [facility] End: 08-21-2018 CT Thoracic Spine Without Contrast CT Thoracic Spine Without Contrast Routine Closed compression fracture of thoracic vertebra with routine healing, subsequent encounter 1 Occurrences starting 08/21/2017 until 08/21/2018 [facility] End: 08-14-2018 CT Thoracic Spine Without Contrast CT Thoracic Spine Without Contrast Routine Closed fracture of third thoracic vertebra with routine healing, unspecified fracture morphology, subsequent encounter 1 Occurrences starting 08/14/2017 until 08/14/2018 [facility] End: 07-09-2024 Lipid 1996 panel - Serum or Plasma Lipid panel Lab Routine Chronic heart failure with preserved ejection fraction (HCC) Chest pain, unspecified type Lipid screening 1 Occurrences starting 07/09/2023 until 07/09/2024 [facility] Comment on above: 1 Occurrences starti ng 07/09/2023 until 07/09/2024 End: 07-09-2024 SPECT Heart perfusion NM Myocardial Perfusion Multiple SPECT Imaging Routine Chronic heart failure with preserved ejection fraction (HCC) Chest pain, unspecified type 1 Occurrences starting 07/09/2023 until 07/09/2024 [facility] Work Phone: Comment on above: 1 Occurrences starti ng 07/09/2023 until 07/09/2024 Payers Date Payer Category Payer Unknown . 2018 Self-pay 2017 Unknown 1950 Unknown [id number] 2.16.84 [id number] 1950 Unknown [id number] 2.16.84 [id number] 1950 Unknown [id number] 2.16.84 [id number] 1950 Unknown [id number] 2.16.84 [id number]. 1952 Unknown [id number] 2.16.84 [id number]. 1952 Unknown [id number] 2.16.84 [id number]. 1950 Unknown [id number] 2.16.84 [id number]. 1950 Unknown [id number] 2.16.84 [id number] Self-pay [id number] Unknown [id number] 2.16.8 [id number] Unknown [id number] 2.16.8 [id number] Social History Date Type Detail Facility Start: 10-30-2017 End: 01-23-2025 Tobacco smoking status [facility] Never smoker [facility] Start: 1950 Sex Assigned At Not on file [facility] Start: 07-09-2023 Tobacco use and exposure Smokeless tobacco non-user [facility] Start: 07-09-2023 Alcohol intake Current non-drinker of alcohol (finding) [facility] Start: 06-14-2023 End: 06-15-2023 History of Social function [facility] Start: 06-14-2023 End: 06-15-2023 [facility] Utilities [facility] Has the [employer], [employer], or water [employer] threatened to shut off services in your home in past 12Mo No [facility] (I/We) worried wheth er (my/our) food would run out before (I/we) got money to buy more. Never true [facility] In the past 12 month s, has lack of transportation kept you from medical appointments or from getting medications? No [facility] Start: 1950 Sex Assigned At Female [facility] History of Present illness Narrative 07-09-2023 Marlen Jernigan MD - 07/09/2023 10:00 AM EST Note Date & Type Note Facility 07-09-2023 History of Presen t illness Narrative General Cardiology Returning Patient Clinic Visit [facility], Heart & Vascular 07/09/2023 Marlen Jernigan MD [address] [place] [phone] [facility] Physician Group, physician's office 07/09/2023 Patient: Marvin Simons Date of : 1950 (72 y.o.) PCP: Devan Lewis PA-C Chief Complaint: Follow-up (Fatigue, SOB, lightheaded, dizzy, palpitations ) Date of Service: 07/09/2023 Assessment and Plan: 1. Chronic heart failure with preserved ejection fraction (HCC) Diastolic dysfunction with heart failure with preserved ejection fraction Likely secondary to microvascular dysfunction, also renal dysfunction May be diffuse microvascular disease due to coronary artery disease as well SGLT2 and spironolactone would be recommended, however patient very hesitant to add any additional medications at this time We will start with stress testing and move from there - NM Myocardial Perfusion Multiple SPECT; Future - Lipid panel; Future 2. Chest pain, unspecified type Positive troponin, abnormal EKG, with chest pain along with symptoms of heart failure, we will proceed with stress testing, we also did discuss left heart catheterization as it seems likely that will be the next step - NM Myocardial Perfusion Multiple SPECT; Future - Lipid panel; Future 3. Lipid screening Routine lipid screening - Lipid panel; Future It has been a pleasure caring for this patient. Please don't hesitate to reach out to my office directly with any questions or concerns. Follow-up: Return in about 6 months (around 01/07/2024). Marlen Jernigan MD, [facility] Non-Invasive Cardiology [facility] P:[phone] F:[phone] History of Present Illness: Marvin Simons is a 72 y.o. woman with a past medical history of diabetes, hyperlipidemia, hypothyroidism who presented to the hospital chest pain and shortness of breath. Cardiology was consulted for recurrent chest pain. Upon arrival the patient was found to have acute hypoxic respiratory failure. She was found to be in heart failure exacerbation. She was seen by our consult team, and did feel improved after receiving IV Lasix. She presents today for our first visit together, symptoms are improved, she does note that she has been weak and does not seem to be is recovering as well following her hospitalization. She notes peripheral neuropathy and walks with a walker. Her reports that she has been complaining of chest pain off and on for several months prior to her presentation. She is somewhat hesitant to proceed with the stress test today. Medications seem to be going well for her. Objective Review of Systems: All systems were reviewed and noted to be negative unless otherwise stated in HPI. Past Medical History: Diagnosis Date Diabetes mellitus, type 2 (HCC) Disease of thyroid gland Neuropathy Rib fracture Thoracic vertebral fracture (HCC) T 1-3 Past Surgical History: Procedure Laterality Date SECTION x 3 CHOLECYSTECTOMY Family History Problem Relation Age of Onset Heart attack Mother Heart disease Father Diabetes Maternal Aunt Diabetes Maternal Grandfather Social History Tobacco Use Smoking Status Never Smokeless Tobacco Never Allergies: Patient has no known allergies. All of the above information has been reviewed at today's visit and modified if necessary. Home Medications: Current Outpatient Medications: amLODIPine (NORVASC) 10 MG tablet, Take 1 (one) tablet (10 mg total) by mouth daily ., Disp: , Rfl: aspirin 325 MG tablet, Take 0.5 (one-half) tablet (162.5 mg total) by mouth every morning ., Disp: , Rfl: atorvastatin (LIPITOR) 20 MG tablet, Take 1 (one) tablet (20 mg total) by mouth nightly ., Disp: , Rfl: CHOLECALCIFEROL, VITAMIN D3, ORAL, Take 1 tablet by mouth daily with lunch ., Disp: , Rfl: furosemide (LASIX) 20 MG tablet, Take 2 (two) tablets (40 mg total) by mouth every morning ., Disp: 60 tablet, Rfl: 0 gabapentin (NEURONTIN) 400 MG capsule, Take 1 (one) capsule (400 mg total) by mouth 4 (four) times a day ., Disp: , Rfl: 3 glipiZIDE (GLUCOTROL XL) 5 MG 24 hr tablet, Take 1 (one) tablet (5 mg total) by mouth every morning ., Disp: , Rfl: 3 levothyroxine (SYNTHROID, LEVOTHROID) 50 MCG tablet, Take 1 (one) tablet (50 mcg total) by mouth once daily ., Disp: , Rfl: lisinopriL (PRINIVIL,ZESTRIL) 10 MG tablet, Take 1 (one) tablet (10 mg total) by mouth every morning ., Disp: , Rfl: metFORMIN (GLUCOPHAGE) 1000 MG tablet, Take 1 (one) tablet (1,000 mg total) by mouth 2 (two) times a day ., Disp: , Rfl: 3 oxyBUTYnin (DITROPAN-XL) 10 MG 24 hr tablet, Take 1 (one) tablet (10 mg total) by mouth nightly ., Disp: , Rfl: Physical Exam: BP 128/67 (BP Location: Left arm, Patient Position: Sitting, BP Cuff Size: Adult) Pulse 82 Ht 5' 1 Wt 68.5 kg (151 lb) SpO2 91% BMI 28.53 kg/m Constitutional: Well appearing female, no acute distress Head: Normocephalic and atraumatic. Eyes: Conjunctivae are normal, no scleral icterus, no corneal arcus Neck: No acanthosis nigricans, no elevated jugular venous distension, no hepatojugular reflux Cardiovascular: Regular EKG rate and rhythm, no murmurs appreciated on today's exam, normal S1 and S2, no rubs or gallops, PMI is midline Pulses: +2 dorsalis pedis pulses bilaterally Musculoskeletal: Normal range of motion. No cyanosis. No peripheral Edema Neurological: AOx3, moving all extremities normally Skin: Skin is warm and dry, normal hair pattern Psychiatric: Normal mood and affect, appropriate conversation Cardiovascular Studies: EKG June 2023 normal sinus rhythm with frequent PACs, lateral T wave changes consistent with ischemia Echocardiogram 2023 Summary 1. Normal LV chamber size. There is mild concentric left ventricular hypertrophy. Systolic function is normal with no regional wall motion abnormalities. Estimated ejection fraction of 60 to 65%. 2. The left ventricular diastolic function is grade II diastolic dysfunction, consistent with elevated left atrial pressure. 3. Right ventricular chamber dimension is normal. Right ventricular systolic function is normal. 4. No hemodynamically significant valvular disease. 5. RV systolic pressure could not be accurately estimated. Labs: Lab Results Component Value Date GLUCOSE 122 (H) 06/17/2023 CALCIUM 9.2 06/17/2023 NA 139 06/17/2023 K 4.1 06/17/2023 CL 104 06/17/2023 BUN 40 (H) 06/17/2023 CREATININE 1.42 (H) 06/17/2023 Lab Results Component Value Date ALT 20 07/25/2017 AST 25 07/25/2017 Lab Results Component Value Date WBC 4.05 (L) 06/17/2023 HGB 9.4 (L) 06/17/2023 HCT 29.5 (L) 06/17/2023 MCV 87.3 06/17/2023 EXTMCV 85.4 07/26/2017 PLT 218 06/17/2023 RBC 3.38 (L) 06/17/2023 No results found for: CHOL, LDLCALC, LDLDIRECT, TRIG, HDL Lab Results Component Value Date HGBA1C 6.0 (H) 06/14/2023 Lab Results Component Value Date ALT 20 07/25/2017 AST 25 07/25/2017 documented in this encounter [facility] Instructions 07-09-2023 Patient Instructions Note Date & Type Note Facility 07-09-2023 Instructions Nelli Ramos RN - 07/09/2023 9:53 AM EST How to Contact your Care Team: Provider: Dr. Marlen Jernigan MD Clinic Nurse: Nelli Ramos RN REFILLS: When in need for refills please call your care team or the office at [phone]. Please include medication name, pharmacy name, and specify 30-day or 90-day supply. Please check with your pharmacy within 24 hours of request for your refill. You must follow up as directed to continue current refills. Thank you! NUCLEAR MEDICINE CARDIAC STRESS TEST THIS IS A 3-4 HOUR TEST Instructions: Appointment Time: , ____/____/____ at ____:____ Prep: DO NOT Take your morning medications. Please bring your morning medications with you. NO CAFFEINE FOR 24 HOURS prior to your test. This includes drinks labeled decaffeinated. Nothing to eat 4 hours prior to your test. A small snack will be provided (crackers, granola bar, juice), or you may bring your own snack for after your stress test. You may drink fluids leading up to your test as long as they are caffeine-free. Decaffeinated drinks still contain some caffeine, please do not drink anything containing caffeine for 24 hours. NO SMOKING the day of your test. Wear comfortable shoes and clothing for exercising. Please wear short sleeves. No metal buttons or snaps. Procedure: Check-in/Registration. Please bring photo ID, insurance cards, and any physician orders. Test explained in detail and IV started. Stress test performed, nuclear medicine will be injected through your IV during the stress test. Stress test recovery period. Heart scan performed. The doctor will review the pictures of your heart and decide if more pictures are needed before you leave. If more are needed you will get another injection of nuclear medicine and this will take an additional hour. The total time for this test is 3-4 hours. There are medications that interfere with this test. You may be instructed to hold medications. If so that will be listed here: If you have any further questions please contact your care team or [phone]. documented in this encounter [facility] Evaluation note Note Date & Type Note Facility Evaluation note Diagnosis Chronic heart failure with preserved ejection fraction (HCC)- Primary Chest pain, unspecified type Lipid screening Screening for lipoid disorders documented in this encounter [facility] Evaluation note Note Date & Type Note Facility Evaluation note No assessment information availa ble [facility] Work Phone: Reason for referral (narrative) Note Date & Type Note Facility Reason for referral (narrative) No reason for referral information available [facility] Work Phone: Assessments Diagnosis Closed compression fracture of thoracic vertebra with routine healing, subsequent encounter - Primary Diagnosis Closed compression fracture of thoracic vertebra with routine healing, subsequent encounter - Primary Diagnosis Closed fracture of third tho racic vertebra with routine healing, unspecified fracture morphology, subsequent encounter - Primary Diagnosis Closed fracture of multiple thoracic vertebrae, initial encounter ([facility]) Diagnosis Closed compression fracture of thoracic vertebra with routine healing, subsequent encounter - Primary Summary Purpose Family History No Family History Records Found Relationship Condition Age at Onset Recorded Date/T zane mother Cardiac disease Unknown father Cardiac disease Unknown Advance Directives No Advanced Directives Records FoundLatest Code Status on File Code Status Date Activated Date Inactivated Comments Full Code 06/14/2023 6:51 PM 06/17/2023 2:38 PM Reason for Referral Specialty Diagnoses / Procedures Referred By Ira t Referred To Contact Radiology Diagnoses CHF (congestive heart failure), NYHA class II, acute on chronic, combined (HCC) Chest pain, unspecified type Procedures NM Myocardial Perfusion Multiple SPECT Day, Marlen Bay MD [address] [place] [id number] Referral ID Status Reason Start Date Expiration Date V isits Requested Visits Authorized [id number] Pending Review 07/09/2023 07/08/2024 4 4 Chief Complaint and Reason for Visit Chief Complaint Admit Date WEIGHT LOSS/BLOATING January 23, 2025 9 :00am Additional Source Comments INFORMATION SOURCE (unrecogn ized section and content) DATE CREATED AUTHOR 11/27/2017 [facility] DATE CREATED AUTHOR AUTHOR'S ORGANIZ ATION 12/05/2017 [facility] DATE CREATED AUTHOR AUTHOR'S ORGANIZ ATION 07/30/2018 [facility] DATE CREATED AUTHOR AUTHOR'S ORGANIZ ATION 07/18/2019 [facility] DATE CREATED AUTHOR AUTHOR'S ORGANIZ ATION 02/06/2022 [facility] dical Specialist DATE CREATED AUTHOR AUTHOR'S ORGANIZ ATION 07/21/2023 [facility] DATE CREATED AUTHOR [facility] AT[facility] CRE[facility] AUTHOR AUTHOR'S ORGANIZ ATION 02/03/2025 [facility] Reason for Visit (unrecogniz ed section and content) Reason Comments Follow-up Fatigue, SOB, lighth eaded, dizzy, palpitations Care Teams (unrecognized sec tion and content) Home Security Professional Relationship Specialty Start Date End Date Devan Lewis PA-C [id number] [facility] [address] [place] [address] PCP - General Physician [employer] Supervisor 07/09/23 Team Status: Inactive Member Role/Relationship Status Dates Dr. Mallory Bahena MD Attending Provider Active Start: January 23, 2025 End: January 23, 2025 Goals (unrecognized section and content) Goals may be documented in a n alternate section FOR RECORDS PERTAINING TO PATIENTS WHO ARE OR HAVE BEEN ENROLLED IN A CHEMICAL DEPENDENCY/SUBSTANCEABUSE PROGRAM, SOME INFORMATION MAY BE OMITTED. This clinical summary was aggregated from multiple sources. Caution should be exercised in using it in the provision of clinical care. This summary normalizes information from multiple sources, and as a consequence, information in this document may materially change the coding, format and clinical context of patient data. In addition, data may be omitted in some cases. CLINICAL DECISIONS SHOULD BE BASED ON THE PRIMARY CLINICAL RECORDS. [facility] [employer] [facility]. provides no warranty or guarantee of the accuracy or completeness of information in this document.
[2025-02-03] MEDS: Lactated Ringers 1,000 ML 15 ML IV (07:36)
--- NOTE | 2025-02-03 07:43 | PCM.PRE.AN2 ---
ASA Classification* ASA Classification ASA Classification: 2 Assessment & Plan Anesthesia* Anesthesia Assessment Anesthesia Assessment: Discussed sedation and/or anesthesia options, risks, benefits, and alternatives with patient/parents/legal guardian/POA. Questions invited. The patient/parents/legal guardian/POA seems to understand and agrees to proceed with anesthesia plan. Reviewed the physical assessment, medical history, allergy history and patient home medications list prior to surgery/procedure/anesthetic and documented any changes. Performed airway and anesthesia risk assessments. Anesthesia Type Anesthesia Type: MAC History Source History Obtained from:: Patient and Chart Anesthesia Focused Assessment* Temperature: 97.9 F Pulse Rate: 89 Blood Pressure: 150/52 Respiratory Rate: 18 Pulse Ox: 97 Oxygen Delivery Method: Room Air Airway Assessment Mouth opens: >3 cm Mallampati Score: III Teeth Condition: Dentures (Patient has full upper and lower dentures. 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 When Was Last Pacemaker Check QUESTION #4 FULL TEXT: You/Your Family Experience fever (hyperthermia) with Anesthesia Last Oral Intake Last Oral intake: Last Oral Intake NPO since 19:00 02/03/25 07:27 Meds taken in AM with sips of water? Meds patient instructed to take am of surgery Any additional information?: Yes NPO since: 05:00 (Patient had a.m. meds at 5 AM.) Meds taken in AM with sips of water?: Yes PONV PONV - appliance line assembler: PONV - appliance line assembler Female Yes 01/30/25 15:24 HX of Motion Sickness No 01/30/25 15:24 HX of N/V After Surgery No 01/30/25 15:24 Non-Smoker Yes 01/30/25 15:24 Duration of Surgery greater No 01/30/25 15:24 than 60 minutes Number of Risk Factors 2 01/30/25 15:24 PONV Score Moderate Risk 01/30/25 15:24 Height & Weight Height & Weight: Anesthesia: Height & Weight Height 5 ft 2 in 02/03/25 07:27 Weight: 55 kg 02/03/25 07:27 Body Mass Index (BMI) 22.1 02/03/25 07:27 Respiratory Assessment Respiratory Assessment - appliance line assembler: Respiratory Tract Infection Hx - appliance line assembler Hx Respiratory Tract Infection No 01/30/25 15:24 STOP Sleep Apnea STOP Sleep Apnea - appliance line assembler: STOP Sleep Apnea - appliance line assembler Hx Hypertension Yes 01/30/25 15:24 Hx Sleep Apnea No 01/30/25 15:24 CPAP BIPAP Do you snore loudly (louder No 01/30/25 15:24 than talking or can be heard Do you often feel tired/ No 01/30/25 15:24 fatigued/ sleepy during daytime? Has anyone observed you stop No 01/30/25 15:24 breathing during sleep? STOP Results Negative 01/30/25 15:24 QUESTION #5 FULL TEXT : Do you snore loudly (louder than talking or can be heard through closed doors)? 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 Specify any problems Hx of Preganancy in last 3 No 01/30/25 15:24 Months Nurse Filling Out Transfusion [place] 01/30/25 15:24 & Questions: Date: 01/30/25 01/30/25 15:24 Time: 15:34 01/30/25 15:24 Patient unable to answer at this time (ie. confused, unrespo /Reproduction History /Reproductive History - appliance line assembler: /Reproductive Hx- appliance line assembler Hx Now No 01/30/25 15:24 Gestational Age (in weeks): EDC: Hx Hx Para Hx Section SAB No 01/30/25 15:24 Active Medications Active Medications: Current Medications Generic Name Dose Route Start Last Admin Trade Name Sudha PRN Reason Stop Dose Admin Lactated Ringer's 1,000 mls @ 15 mls/hr 02/03/25 07:15 02/03/25 07:36 IV 15 mls/hr .Q48H BRENDA Administration PFSH Medical History Wears dentures Wears glasses Walker as ambulation aid Uses wheelchair Bladder disease High cholesterol Non-smoker Shortness of breath on exertion Leg cramps History of stress test Anemia Black tarry stools Constipation Nausea Abdominal pain Sleep apnea SOB (shortness of breath) HTN (hypertension) Diabetes Weight loss Fatigue Difficulty swallowing Home Medications ?Medication ?Instructions ?Recorded ?Last Taken ?Type amlodipine 5 mg tablet 5 mg PO QDAY 01/23/25 02/03/25 History aspirin 81 mg tablet 81 mg PO QDAY 01/23/25 01/29/25 History atorvastatin 40 mg tablet 40 mg PO QDAY 01/23/25 01/29/25 History dapagliflozin propanediol 10 mg 10 mg PO QAM 01/23/25 01/30/25 History tablet (Farxiga) furosemide 20 mg tablet 20 mg PO QAM 01/23/25 01/29/25 History gabapentin 400 mg capsule 400 mg PO 4X/DAY 01/23/25 02/03/25 History glipizide 5 mg tablet, extended 5 mg PO QDAY 01/23/25 01/29/25 History release 24 hr hydralazine 25 mg tablet 25 mg PO TID 01/23/25 02/03/25 History lisinopril 10 mg tablet 10 mg PO QAM 01/23/25 01/29/25 History metformin 1,000 mg tablet 1,000 mg PO BID 01/23/25 01/29/25 History oxybutynin chloride 10 mg 10 mg PO QDAY 01/23/25 01/29/25 History tablet,extended release 24 hr Allergy/AdvReac Type Severity Reaction Status Date / Time No Known Allergies Allergy Verified 01/30/25 15:18 Family History Mother Heart disease Father Heart disease Surgical History History of cardiac catheterization S/P laparoscopic cholecystectomy History of Social History Smoking Status: Never smoker alcohol intake: never Review of Systems (Anesthesia) ROS Narrative System reviewed and no additional complaints, except as documented.
--- NOTE | 2025-02-03 08:15 | COLBX_PTH ---
PATIENT: MARVIN SIMONS LOC: EN U#:[id number] AGE/SX: 74/F ROOM: RE02/03/[address]: Dr. Mallory Bahena MD : 1950 BED: DIS: 02/03/2025 SPEC #: [id number] RECD: 02/03/25 10:01 STATUS: BRITTNEY BUTCH #: [id number] TERRY: 02/03/25 08:[address]: Mallory Bahena DEPT: SURGICAL PATHOLOGY RECD BY: Marshall Cuba ENTERED: 02/03/25 10:31 SP TYPE: COLON BX OTHR DR: Woo Hill PA-C Tissues: A - Gastric mucous membrane B - Esophagus, NOS Procedures: Immunohistochemical Stains Special Stain Group I Surgery Specimen Level IV GMS Stain (control) HEADER OPERATION: Colonoscopy, EGD with biopsy and gold probe cautery PRE-OP DIAGNOSIS: Nausea, weight loss, bloating TISSUE SUBMITTED: A- Antrum biopsy, B- Lower esophagus to rule out Jana MICROSCOPIC DIAGNOSIS A. Gastric antrum, biopsy: - Active chronic gastritis. - IHC negative for H. pylori organisms. B. Esophagus, lower, biopsy: - Squamous mucosa with acute inflammation. - PASD stain highlights fungal organisms morphologically compatible with candidiasis. MICROSCOPIC DESCRIPTION Slides are reviewed. All matched controls reacted appropriately. These tests were developed and their performance characteristics determined by [facility]. They may not have been cleared or approved by the U.S. Food and Drug Administration. The FDA hasdetermined that such clearance or approval is not necessary. The above immunohistochemical/dualISH markers are reviewed by the Pathologist. GROSS DESCRIPTION A. Received in fixative is one container labeled with the patient's name and designated Antrum biopsy. The specimen consists of one irregular fragment of light dumas soft tissue that measures 0.2 cm. The specimen is totally submitted in one cassette. B. Received in fixative is one container labeled with the patient's name and designated Lower esophagus. The specimen consists of one irregular fragment of light dumas soft tissue that measures 0.4 cm. The specimen is totally submitted in one cassette. VT 02/03/2025 CPT:06102q9,16016,34580
--- NOTE | 2025-02-03 08:20 | HP.PCM_ITS ---
History and Physical Date of Admission: 02/03/25 Date of Service: 01/23/25 MR#: [id number] Acct: [id number] Name: MARVIN SIMONS Rep #: [id number] : 1950 Provider: Dr. Mallory Bahena MD Age/Sex: 74/F Location: [facility] Status: Signed Intake Vital Signs 01/23/2509:20 Height 5 ft 2 in Weight: 124 lb BMI 22.6 BP 134/66 H Blood Pressure Location Rt brachial Position Sitting Respiration 16 Intake Visit Reasons: WEIGHT LOSS/BLOATING Chief Complaint: wt loss, abd pain, bloating, constipation Inclusion Specialist Required: No Is patient in pain?: Yes (mid abdomen) Allergies No Known Allergies Allergy (Unverified 01/23/25 09:21) Medications ?Medication ?Instructions ?Recorded ?Confirmed ?Type amlodipine 5 mg tablet 5 mg PO QDAY 01/23/25 01/23/25 History aspirin 81 mg tablet 81 mg PO QDAY 01/23/25 01/23/25 History atorvastatin 40 mg tablet 40 mg PO QDAY 01/23/25 01/23/25 History dapagliflozin propanediol 10 mg 10 mg PO QAM 01/23/25 01/23/25 History tablet (Farxiga) furosemide 20 mg tablet 20 mg PO QAM 01/23/25 01/23/25 History gabapentin 400 mg capsule 400 mg PO 4X/DAY 01/23/25 01/23/25 Histo ry glipizide 5 mg tablet, extended 5 mg PO QDAY 01/23/25 01/23/25 History release 24 hr hydralazine 25 mg tablet 25 mg PO TID 01/23/25 01/23/25 History lisinopril 10 mg tablet 10 mg PO QAM 01/23/25 01/23/25 History metformin 1,000 mg tablet 1,000 mg PO BID 01/23/25 01/23/25 Histor y omeprazole 40 mg capsule,delayed 40 mg PO QDAY #30 caps 01/23/25 01/23/25 Rx release oxybutynin chloride 10 mg 10 mg PO QDAY 01/23/25 01/23/25 History tablet,extended release 24 hr tramadol 50 mg tablet 50 mg PO Q6 PRN 01/23/25 01/23/25 Histor y Have you fallen in the past year?: Yes [facility] Medical History (Updated 01/26/25 @ 12:[address] Mallory Bahena MD) Anemia Black tarry stools Constipation Nausea Abdominal pain Sleep apnea SOB (shortness of breath) HTN (hypertension) Diabetes Weight loss Fatigue Difficulty swallowing Surgical History (Updated 01/23/25 @ 09:20 by Leslie Jackson) S/P laparoscopic cholecystectomy History of Family History (Updated 01/23/25 @ 09:20 by Leslie Jackson) Mother Heart diseaseFather Heart disease Social History (Updated 01/23/25 @ 09:20 by Leslie Jackson) Smoking Status: Never smoker alcohol intake: never HPI HPI HPI: 74-year-old female presents due to bloating and weight loss. Patient states she lost about 2025 pounds unintentionally in the last 4 months. Patient states she has felt bloated for several months. Patient has been occasionally taking MiraLAX usually has bowel moods but every 2 to 3 days. Patient denies any vomiting but has had nausea daily. Patient currently denies any abdominal pain. Patient is on 81 mg aspirin preventative. ROS General General: Yes weight change and fatigue; No appetite, colon cancer or breast cancer HEENT HEENT: Yes difficulty swallowing, eye injury and eye surgery; No swollen glands or hoarseness Endo Endocrine: Yes diabetes mellitus; No thyroid disease, thyroid cancer, Hair loss, heat intolerance or cold intolerance Skin Skin: No rash or changing moles Musc Musculoskeletal: Yes back problems; No arthritis, rheumatoid arthritis, gout or joint pain Cardio Cardiovascular: Yes high blood pressure; No murmur, pacemaker, heart disease, atrial fibrillation, heart attack, heart stent, palpitations, shortness of breath with exertion or chest pain Psych Psychiatric: No depression, anxiety or hearing voices Resp Respiratory: Yes shortness of breath, Yes sleep apnea, No cough, No COPD, No asthma, No emphysema and No wheezing Gastro Gastrointestinal: Yes abdominal pain, Yes nausea or vomiting, No diarrhea, Yes constipation, No blood in stool, No acid reflux, No hemorrhoids, No ulcers, No gallbladder problem and Yes black,tarry stools Joseph Hematologic: No blood thinners, No blood disorders, No bleeding, Yes anemia and No blood clots Neuro Neurologic: Yes numbness and Yes tingling Exam Const General: cooperative, comfortable and no acute distress HENUT Head: normocephalic and atraumatic Neck Neck: supple Resp Effort & Inspection: normal respiratory effort Cardio Rate: regular rate GI Inspection: non-distended Palpation: soft and nontender Skin General: no rashes or lesions noted Neuro General: CN's II-XI intact bilaterally Extrem General: normal to inspection Psych Mental Status: mental status grossly normal Attitude: cooperative Assessment and Plan Assessment and Plan (1) Nausea: Status: Acute (2) Weight loss: Status: Acute (3) Bloating: Status: Acute Medications: New omeprazole 40 mg PO QDAY 30 caps 3RF Plan Will plan for an EGD and colonoscopy due to weight loss and bloating. Will also start patient on omeprazole see if that helps with the bloating and nausea. I have discussed the above with the patient. I have offered the patient esophagogastroduodenoscopy and colonoscopy for evaluation. I have explained the risks/benefits of the procedure and described the procedure. I have discussed the risks with the patient, including but not limited to: infection, bleeding, perforation of the GI tract requiring emergency surgery, inability to complete the procedure, injury to any internal organs, complications of anesthesia, etc. - the patient understands and agrees to proceed. I have answered all the patient's questions to the patient's satisfaction and the patient has no further questions. The patient has been given instructions for the colon cleansing preparation. 1 day of clears, MiraLAX Dulcolax prep. Mallory Bahena M.D. Pager: [phone] [facility] [address] [place] [address], [address] [place] [address] Office: [phone] Coding Level of Care Code Off vis,new,level 3 Diagnoses Nausea R11.0 Weight loss R63.4 Bloating R14.0 Clinical Quality Measures Falls Risk Screening/Assistive Devices Have you fallen in the past year?: Yes 01/26/25 2675 <Electronically signed by Mallory Bahena MD> Date Mallory Bahena MD
[2025-02-03] MEDS: Lactated Ringers 1,000 ML 1000 ML IV (08:36)
--- NOTE | 2025-02-03 09:15 | PCM.POST.ANE ---
Anesthesia: Postop Eval I Current Vital Signs Temperature: 97.0 F Pulse Rate: 62 Blood Pressure: 109/22 Respiratory Rate: 16 Pulse Ox: 10 Oxygen Delivery Method: Room Air Assessment Airway patent: Yes Spontaneous unlabored respirations: Yes Mental status: Asleep nausea: No Vomiting: No Anesthesia Complication: No Fluid Hydration Crystalloid volume administer (ml): 300 Total IV fluid infused: 300 Progress Note Anesthesia document: Postop Eval 1 completed: Yes
[2025-02-03] MEDS: Pantoprazole Sodium 40 MG in 0.9% Normal Saline (100mL MB+) 100 ML 300 MG IV (09:17)
--- NOTE | 2025-02-03 09:18 | OP.PROVAT_ITS ---
02/03/2025 Woo [place] Do Re : Upper GI endoscopy procedure for Myla Smith Dear Liz This procedure was performed on Monday, February 03, 2025. My impressions and recommendations are as follows: Impressions : - Z-line regular, 40 cm from the incisors. - White nummular lesions in esophageal mucosa. Biopsied. - Oozing gastric ulcer with pigmented material. Biopsied. Treated with bipolar cautery. - Normal examined duodenum. Recommendations : - Discharge patient to home. - Resume previous diet. - Continue present medications. - Await pathology results. - Use Prilosec (omeprazole) 40 mg PO BID. - Use sucralfate tablets 1 gram PO QID for 1 month. My findings are described in the full procedure note, which is enclosed. If I can be of further assistance, please feel free to contact me at Doctor phone number(s): , Work: . Sincerely, MD Mallory Roa MD 02/03/2025 9:18:07 AM This report has been signed electronically.
--- NOTE | 2025-02-03 09:18 | OP.EGD_ITS ---
Patient Name: Myla Smith Procedure Date: 02/03/2025 7:22 AM Date of : 1950 Age: 74 Procedure: Upper GI endoscopy Indications: Abdominal pain, Abdominal bloating Providers: Mallory Bahena MD Referring MD: Woo Hill Do Medicines: Monitored Anesthesia Care Patient Profile: This is a 74 year old female. Complications: No immediate complications. Procedure: Pre-Anesthesia Assessment: - Prior to the procedure, a History and Physical was performed, and patient medications and allergies were reviewed. The patient's tolerance of previous anesthesia was also reviewed. The risks and benefits of the procedure and the sedation options and risks were discussed with the patient. All questions were answered, and informed consent was obtained. Prior Anticoagulants: The patient has taken no anticoagulant or antiplatelet agents except for aspirin. ASA Grade Assessment: Per anesthesia. After reviewing the risks and benefits, the patient was deemed in satisfactory condition to undergo the procedure. After obtaining informed consent, the endoscope was passed under direct vision. Throughout the procedure, the patient's blood pressure, pulse, and oxygen saturations were monitored continuously. The Colonoscope was introduced through the mouth, and advanced to the second part of duodenum. The upper GI endoscopy was accomplished without difficulty. The patient tolerated the procedure well. Scope In: 8:35:58 AM Scope Out: 8:47:01 AM Total Procedure Duration Time 0 hours 11 minutes 3 seconds Findings: The Z-line was regular and was found 40 cm from the incisors. White nummular lesions were noted in the lower third of the esophagus. Biopsies were taken with a cold forceps for histology. One oozing cratered gastric ulcer with pigmented material was found in the prepyloric region of the stomach. The lesion was 20 mm in largest dimension. Biopsies were taken with a cold forceps for histology. Biopsies were taken with a cold forceps for Helicobacter pylori cultures. Coagulation for hemostasis of bleeding caused by the procedure using bipolar probe was successful. The cardia and gastric fundus were normal on retroflexion. The examined duodenum was normal. Impression: - Z-line regular, 40 cm from the incisors. - White nummular lesions in esophageal mucosa. Biopsied. - Oozing gastric ulcer with pigmented material. Biopsied. Treated with bipolar cautery. - Normal examined duodenum. Recommendation: - Discharge patient to home. - Resume previous diet. - Continue present medications. - Await pathology results. - Use Prilosec (omeprazole) 40 mg PO BID. - Use sucralfate tablets 1 gram PO QID for 1 month. Procedure Code(s): --- Professional --- 89667, PT, Esophagogastroduodenoscopy, flexible, transoral; with biopsy, single or multiple Diagnosis Code(s): --- Professional --- K22.89, Other specified disease of esophagus K25.4, Chronic or unspecified gastric ulcer with hemorrhage R10.9, Unspecified abdominal pain R14.0, Abdominal distension (gaseous) CPT copyright 2021 [employer] [employer]. All rights reserved. The codes documented in this report are preliminary and upon caterer helper review may be revised to meet current compliance requirements. MD Mallory Roa MD 02/03/2025 9:18:07 AM This report has been signed electronically. Number of Addenda: 0 Note Initiated On: 02/03/2025 7:22 AM
--- NOTE | 2025-02-03 09:21 | OP.COLON_ITS ---
Patient Name: Myla Smith Procedure Date: 02/03/2025 8:47 AM Date of : 1950 Age: 74 Procedure: Colonoscopy Indications: Abdominal pain, Weight loss Providers: Mallory Bahena MD Referring MD: Woo Hill Do Medicines: Monitored Anesthesia Care Patient Profile: This is a 74 year old female. Last Colonoscopy: none. The patient's first colonoscopy is today. Complications: No immediate complications. Procedure: Pre-Anesthesia Assessment: - Prior to the procedure, a History and Physical was performed, and patient medications and allergies were reviewed. The patient's tolerance of previous anesthesia was also reviewed. The risks and benefits of the procedure and the sedation options and risks were discussed with the patient. All questions were answered, and informed consent was obtained. Prior Anticoagulants: The patient has taken no anticoagulant or antiplatelet agents except for aspirin. ASA Grade Assessment: Per anesthesia. After reviewing the risks and benefits, the patient was deemed in satisfactory condition to undergo the procedure. After I obtained informed consent, the scope was passed under direct vision. Throughout the procedure, the patient's blood pressure, pulse, and oxygen saturations were monitored continuously. The Colonoscope was introduced through the anus and advanced to the cecum, identified by the appendiceal orifice, ileocecal valve and palpation. The colonoscopy was performed without difficulty. The patient tolerated the procedure well. The quality of the bowel preparation was good. Scope In: 8:48:30 AM Scope Withdrawal Time 0 hours 8 minutes 5 seconds Scope Out: 9:07:48 AM Total Procedure Duration Time 0 hours 19 minutes 18 seconds Findings: The perianal and digital rectal examinations were normal. The entire examined colon appeared normal on direct and retroflexion views. Impression: - The entire examined colon is normal on direct and retroflexion views. - No specimens collected. Recommendation: - Discharge patient to home. - Resume previous diet. - Continue present medications. - Repeat colonoscopy not needed due to age. Procedure Code(s): --- Professional --- 08472, Colonoscopy, flexible; diagnostic, including collection of specimen(s) by brushing or washing, when performed (separate procedure) Diagnosis Code(s): --- Professional --- R10.9, Unspecified abdominal pain R63.4, Abnormal weight loss CPT copyright 2021 [employer]. All rights reserved. The codes documented in this report are preliminary and upon psych arnp review may be revised to meet current compliance requirements. MD Mallory Roa MD 02/03/2025 9:21:12 AM This report has been signed electronically. Number of Addenda: 0 Note Initiated On: 02/03/2025 8:47 AM
--- NOTE | 2025-02-03 09:22 | OP.PROVAT_ITS ---
02/03/2025 Woo Hill Do Re : Colonoscopy procedure for Myla Smith Dear Liz This procedure was performed on Monday, February 03, 2025. My impressions and recommendations are as follows: Impressions : - The entire examined colon is normal on direct and retroflexion views. - No specimens collected. Recommendations : - Discharge patient to home. - Resume previous diet. - Continue present medications. - Repeat colonoscopy not needed due to age. My findings are described in the full procedure note, which is enclosed. If I can be of further assistance, please feel free to contact me at Doctor phone number(s): , Work: . Sincerely, MD Mallory Roa MD 02/03/2025 9:21:12 AM This report has been signed electronically.
--- NOTE | 2025-02-03 14:05 | POSTOPAN2_ITS ---
Anesthesia Postop Eval I Sum Postop Eval Completion status Anesthesia document: Postop Eval 1 completed: Yes Anesthesia Postop Eval I Summary Anesthesia Postop Eval I Summary: Anesthesia Postop Eval I: Assessment Summary Airway patent Yes 02/03/25 09:16 [email or web address] Spontaneous unlabored Yes 02/03/25 09:16 [email or web address] [email or web address] respirations Mental status Asleep 02/03/25 09:16 [email or web address] nausea No 02/03/25 09:16 [email or web address] [email or web address] Vomiting No 02/03/25 09:16 [email or web address] Anesthesia Postop Eval I: Fluid Summary Crystalloid volume administer 300 02/03/25 09:16 [email or web address] (ml) Colloids volume administered ( ml) Blood Product volume administered (ml) Total IV fluid infused 300 02/03/25 09:16 [email or web address] Anesthesia Postop Eval I: Summary Notes Anesthesia Complication No 02/03/25 09:16 [email or web address] Anesthesia Complication Comment: Post-operative progress note Anesthesia: Postop Eval II Evaluation Mental status: Awake and Calm Pain Level: 0 nausea: No Vomiting: No Complications Anesthesia Complication: No
--- NOTE | 2025-02-03 14:05 | PCM.POSTANE2 ---
Anesthesia Postop Eval I Sum Postop Eval Completion status Anesthesia document: Postop Eval 1 completed: Yes Anesthesia Postop Eval I Summary Anesthesia Postop Eval I Summary: Anesthesia Postop Eval I: Assessment Summary Airway patent Yes 02/03/25 09:16 [email or web address] Spontaneous unlabored Yes 02/03/25 09:16 [email or web address] respirations Mental status Asleep 02/03/25 09:16 [email or web address] nausea No 02/03/25 09:16 [email or web address] [email or web address] Vomiting No 02/03/25 09:16 [email or web address] Anesthesia Postop Eval I: Fluid Summary Crystalloid volume administer 300 02/03/25 09:16 [email or web address] (ml) Colloids volume administered ( ml) Blood Product volume administered (ml) Total IV fluid infused 300 02/03/25 09:16 [email or web address] Anesthesia Postop Eval I: Summary Notes Anesthesia Complication No 02/03/25 09:16 [email or web address] Anesthesia Complication Comment: Post-operative progress note Anesthesia: Postop Eval II Evaluation Mental status: Awake and Calm Pain Level: 0 nausea: No Vomiting: No Complications Anesthesia Complication: No
== END 2025-02-03 11:10 | disposition home or self-care (01) ==
LOC: EN 06:58 → AC 06:58
PROVIDERS: PCP Physician Assistant; Referring Provider Physician Assistant; Visit Provider Surgery
PROC: 0DJD8ZZ Inspection of Lower Intestinal Tract, Via Natural or Artificial Opening Endoscopic (ICD-10-PCS; CPT 45378; principal; 2025-02-03 08:10)
DX: K25.4 Chronic or unspecified gastric ulcer with hemorrhage (principal); E11.9 Type 2 diabetes mellitus without complications; K29.51 Unspecified chronic gastritis with bleeding; K22.89 Other specified disease of esophagus; R63.4 Abnormal weight loss; I10 Essential (primary) hypertension; Z68.22 Body mass index [BMI] 22.0-22.9, adult; Z79.82 Long term (current) use of aspirin; Z79.84 Long term (current) use of oral hypoglycemic drugs; Z79.899 Other long term (current) drug therapy
CPT/HCPCS: 43239; 45378; 82962; 88305; 88312; 88342; C1889